=== PATIENT | male | born 1945 | race Caucasian/White ===

== ENCOUNTER 2017-11-01 15:16 | Outpatient (CLI) | payer MEDICARE, OTHER, MEDICAID ==
[2017-11-01 18:55] LABS: BASOPHILS % (AUTO) 0.4 %; EOSINOPHILS # (AUTO) 0.3 10^3/uL (0.0-0.7); EOSINOPHILS % (AUTO) 3.2 %; HGB - HEMOGLOBIN 11.6 g/dL (14.0-18.0); LYMPHOCYTES # (AUTO) 1.4 10^3/uL (1.5-3.5); MEAN CORPUSCULAR HGB CONC 31.2 g/dL (32.0-36.0); MEAN CORPUSCULAR VOLUME 92.9 fL (80.0-94.0); MONOCYTES # (AUTO) 0.7 10^3/uL (0.0-1.0); NEUTROPHILS # (AUTO) 6.1 10^3/uL (1.5-6.6); NEUTROPHILS % (AUTO) 72.4 %; PLT - PLATELET COUNT 242 10^3/uL (130-450); RED BLOOD COUNT 3.99 10^6/uL (4.70-6.10); RED CELL DISTRIBUTION WIDTH 14.5 % (12.0-15.0); WHITE BLOOD COUNT 8.5 x10^3/uL (4.8-10.8)
[2017-11-01 19:17] LABS: PSA FREE 0.04 ng/mL (0.16-2.81)
[2017-11-01 19:20] LABS: PSA TOTAL 0.28 ng/mL (0.000-2.000)
[2017-11-01 19:24] LABS: HB2 TOTAL 12.3 g/dL; HEMOGLOBIN A1C 0.54 g/dL; HEMOGLOBIN A1C % 6.2 % (4.6-6.2)
[2017-11-01 19:48] LABS: ALBUMIN/GLOBULIN RATIO 0.7 (1.0-2.2); ALKALINE PHOSPHATASE 74 IU/L (42-121); ALT ALANINE AMINOTRANSFERASE 22 IU/L (10-60); AST ASPARTATE AMINOTRANSFERASE 23 IU/L (10-42); BILIRUBIN,TOTAL 0.7 mg/dL (0.2-1.0); BUN - BLOOD UREA NITROGEN 11 mg/dL (6-20); CALCIUM 9.9 mg/dL (8.5-10.3); CARBON DIOXIDE - CO2 35 mmol/L (21-32); CHLORIDE 99 mmol/L (101-111); CHOL/HDL RATIO 4.7 (<5.0); CHOLESTEROL 177 mg/dL; GFR - MDRD 74 (>89); GLUCOSE 93 mg/dL (70-100); HDL CHOLESTEROL 38 mg/dL; LDL CHOLESTEROL,CALCULATED 106 mg/dL; LDL/HDL RATIO 2.8 (<3.6); SODIUM 138 mmol/L (135-145); TOTAL PROTEIN 7.3 g/dL (6.7-8.2); VLDL CHOLESTEROL 33 mg/dL
== END 2017-11-01 15:17 | disposition home or self-care (01) ==
LOC: LAB.N 15:16
PROVIDERS: ATTEND Nurse Practitioner Gerontology
DX: D64.9 Anemia, unspecified (principal); E11.9 Type 2 diabetes mellitus without complications; E78.1 Pure hyperglyceridemia; K21.9 Gastro-esophageal reflux disease without esophagitis; N28.9 Disorder of kidney and ureter, unspecified; I10 Essential (primary) hypertension; E78.5 Hyperlipidemia, unspecified; N40.0 Benign prostatic hyperplasia without lower urinary tract symptoms
CPT/HCPCS: 36415; 80053; 80061; 83036; 83721; 84154; 84443; 85025

== ENCOUNTER 2018-01-26 06:40 | Outpatient (CLI) | payer MEDICARE, OTHER, MEDICAID | END 2018-01-26 06:41 | disposition EMS.NT | LOC: EMS 06:40 | PROVIDERS: ATTEND Surgery | DX: Z03.89 Encounter for observation for other suspected diseases and conditions ruled out (principal); W01.0XXA Fall on same level from slipping, tripping and stumbling without subsequent striking against object, initial encounter; Y92.039 Unspecified place in apartment as the place of occurrence of the external cause ==

== ENCOUNTER 2018-04-09 14:02 | Outpatient (CLI) | payer MEDICARE, OTHER, MEDICAID | END 2018-04-09 14:03 | disposition EMS.NT | LOC: EMS 14:02 | PROVIDERS: ATTEND Surgery | DX: L76.22 Postprocedural hemorrhage of skin and subcutaneous tissue following other procedure (principal) ==

== ENCOUNTER 2018-04-14 15:28 | Outpatient (CLI) | payer MEDICARE, OTHER, MEDICAID ==
[2018-04-14 19:40] LABS: HB2 TOTAL 11.8 g/dL; HEMOGLOBIN A1C 0.52 g/dL; HEMOGLOBIN A1C % 6.2 % (4.6-6.2)
[2018-04-14 19:48] LABS: PSA FREE 0.03 ng/mL (0.16-2.81)
[2018-04-14 19:49] LABS: PSA TOTAL 0.19 ng/mL (0.000-2.000)
== END 2018-04-14 23:59 | disposition home or self-care (01) ==
LOC: LAB.N 15:28
PROVIDERS: ATTEND Nurse Practitioner Gerontology
DX: E11.9 Type 2 diabetes mellitus without complications (principal); N40.0 Benign prostatic hyperplasia without lower urinary tract symptoms; E03.9 Hypothyroidism, unspecified
CPT/HCPCS: 36415; 83036; 84153; 84154; 84443

== ENCOUNTER 2018-05-18 18:13 | Outpatient (CLI) | payer MEDICARE, OTHER, MEDICAID | END 2018-05-18 18:14 | disposition critical access hospital (66) | LOC: EMS 18:13 | PROVIDERS: ATTEND Surgery | DX: R53.1 Weakness (principal); M54.5 Low back pain | CPT/HCPCS: A0425; A0429 ==

== ENCOUNTER 2018-05-18 18:40 | Emergency (ER) | payer MEDICARE, OTHER, MEDICAID ==
[2018-05-18 19:10] LABS: BASOPHILS % (AUTO) 0.6 %; EOSINOPHILS # (AUTO) 0.2 10^3/uL (0.0-0.7); EOSINOPHILS % (AUTO) 3.2 %; HGB - HEMOGLOBIN 11.7 g/dL (14.0-18.0); LYMPHOCYTES # (AUTO) 1.1 10^3/uL (1.5-3.5); LYMPHOCYTES % (AUTO) 15.3 %; MEAN CORPUSCULAR HEMOGLOBIN 27.3 pg (27.0-31.0); MEAN CORPUSCULAR HGB CONC 30.7 g/dL (32.0-36.0); MEAN CORPUSCULAR VOLUME 88.9 fL (80.0-94.0); MEAN PLATELET VOLUME 7.6 fL (7.4-11.4); MONOCYTES # (AUTO) 0.5 10^3/uL (0.0-1.0); MONOCYTES % (AUTO) 6.7 %; NEUTROPHILS # (AUTO) 5.3 10^3/uL (1.5-6.6); NEUTROPHILS % (AUTO) 74.2 %; PLT - PLATELET COUNT 218 10^3/uL (130-450); RED BLOOD COUNT 4.27 10^6/uL (4.70-6.10); RED CELL DISTRIBUTION WIDTH 16.1 % (12.0-15.0); WHITE BLOOD COUNT 7.2 x10^3/uL (4.8-10.8)
[2018-05-18 19:22] LABS: ALBUMIN 3.2 g/dL (3.2-5.5); ALBUMIN/GLOBULIN RATIO 0.8 (1.0-2.2); BILIRUBIN,TOTAL 0.8 mg/dL (0.2-1.0); CALCIUM 9.5 mg/dL (8.5-10.3); CREATININE 0.8 mg/dL (0.6-1.2); TOTAL PROTEIN 7.2 g/dL (6.7-8.2)
--- NOTE | 2018-05-18 20:36 | ED Physician Documentation ---
History of Present Illness - Stated complaint Stated Complaint: WEAKNESS, BACK PAIN - Chief complaint Chief Complaint: Neuro - History obtained from History obtained from: Patient - History of Present Illness Timing: Today Pain level max: 8 Pain level now: 8 Improved by: rest Worsened by: movement - Additonal information Additional information: 72 yo M with low back pain today. Feels sharp. Intermittent. States R knee locked up today. Called 911 and brought here. No trauma. No fall. Has had back issues in the past. States is constipated and this worsens the back pain. Review of Systems Constitutional: denies: Fever, Chills Throat: denies: Sore throat Cardiac: denies: Chest pain / pressure, Palpitations Respiratory: denies: Cough, Hemoptysis, Wheezing GI: denies: Abdominal Pain, Nausea, Vomiting : denies: Dysuria Skin: denies: Rash Musculoskeletal: reports: Joint pain (chronic knee and back pain.). denies: Neck pain, Extremity swelling Neurologic: denies: Confused, Altered mental status, Head injury, LOC PD PAST MEDICAL HISTORY - Past Medical History Respiratory: Shortness of breath Endocrine/Autoimmune: Type 2 diabetes Musculoskeletal: Osteoarthritis - Past Surgical History Derm: Skin grafts - Present Medications Home Medications: Ambulatory Orders Medication Instructions Recorded Confirmed Cefdinir 300 mg PO BID #20 capsule 05/18/18 - Allergies Allergies/Adverse Reactions: Allergies Allergy/AdvReac Type Severity Reaction Status Date / Time Sulfa (Sulfonamide Allergy Unknown Verified 05/18/18 18:48 Antibiotics) - Social History Does the pt smoke?: No Smoking Status: Never smoker Does the pt drink ETOH?: No Does the pt have substance abuse?: No - Immunizations Immunizations are current?: Yes PD ED PE NORMAL - Vitals Vital signs reviewed: Yes - General General: Alert and oriented X 3, No acute distress - HEENT HEENT: Moist mucous membranes - Neck Neck: Supple, no meningeal sign, No bony TTP - Cardiac Cardiac: RRR, Strong equal pulses - Respiratory Respiratory: No respiratory distress, Clear bilaterally - Abdomen Abdomen: Soft, Non tender, Other (large umbilical hernia, no incarceration.) - Back Back: No spinal TTP - Derm Derm: Warm and dry - Extremities Extremities: Normal ROM s pain - Neuro Neuro: Alert and oriented X 3, No motor deficit, No sensory deficit - Psych Psych: Normal mood, Normal affect Results - Vitals Vitals: Vital Signs - 24 hr 05/18/18 05/18/18 05/18/18 18:43 19:28 21:24 Temperature 36.1 C L Heart Rate 81 78 79 Respiratory 20 18 Rate Blood Pressure 140/69 H 137/89 H O2 Saturation 95 97 05/18/18 22:36 Temperature 36.3 C L Heart Rate 76 Respiratory 16 Rate Blood Pressure 104/84 H O2 Saturation 96 Oxygen O2 Source Nasal cannula - Labs Labs: Laboratory Tests 05/18/18 05/18/18 05/18/18 19:02 19:02 20:55 WBC 7.2 RBC 4.27 L Hgb 11.7 L Hct 38.0 L MCV 88.9 MCH 27.3 MCHC 30.7 L RDW 16.1 H Plt Count 218 MPV 7.6 Neut # (Auto) 5.3 Lymph # (Auto) 1.1 L [place] # (Auto) 0.5 Eos # (Auto) 0.2 Baso # (Auto) 0.0 Absolute Nucleated RBC 0.00 Nucleated RBC % 0.0 Sodium 136 Potassium 4.1 Chloride 98 L Carbon Dioxide 32 Anion Gap 6.0 BUN 10 Creatinine 0.8 Estimated GFR (MDRD) 96 Glucose 98 Calcium 9.5 Total Bilirubin 0.8 AST 18 ALT 13 Alkaline Phosphatase 74 Total Protein 7.2 Albumin 3.2 Globulin 4.0 Albumin/Globulin Ratio 0.8 L Lipase 51 Urine Color YELLOW Urine Clarity CLOUDY Urine pH 7.5 Ur Specific [place] 1.020 Urine Protein NEGATIVE Urine Glucose (UA) NEGATIVE Urine Ketones TRACE Urine Occult Blood NEGATIVE Urine Nitrite NEGATIVE Urine Bilirubin NEGATIVE Urine Urobilinogen 2 H Ur Leukocyte Esterase MODERATE H Urine RBC 0-5 Urine WBC >25 H Ur Squamous Epith Cells RARE Squamous Urine Bacteria Many H Ur Microscopic Review INDICATED Urine Culture Comments INDICATED PD MEDICAL DECISION MAKING - ED course Complexity details: reviewed results, re-evaluated patient, considered differential, d/w patient ED course: Patient is a 72-year-old male who presents the emergency department with low back pain, found to have a UTI. Pain resolved. Given Rocephin. Will place on antibiotics for home. He is well-appearing, nontoxic. Afebrile. Patient counseled regarding signs and symptoms for which I believe and urgent re- evaluation would be necessary. Patient with good understanding of and agreement to plan and is comfortable going home at this time This document was made in part using voice recognition software. While efforts are made to proofread this document, sound alike and grammatical errors may occur. Departure - Departure Disposition: 01 Home, Self Care Clinical Impression: UTI (urinary tract infection) Qualifiers: Urinary tract infection type: acute cystitis Hematuria presence: without hematuria Qualified Code(s): N30.00 - Acute cystitis without hematuria Condition: Good Instructions: ED UTI Cystitis Male Follow-Up: Lavonne Cornelius ARNP [Primary Care Provider] - Prescriptions: Cefdinir 300 mg PO BID #20 capsule Comments: Take all antibiotics until gone. Return if you worsen. Discharge Date/Time: 05/18/18 23:40
[2018-05-18 20:59] LABS: BILIRUBIN,URINE NEGATIVE (NEGATIVE); GLUCOSE, URINE (UA) NEGATIVE (NEGATIVE); KETONES,URINE (UA) TRACE mg/dL (NEGATIVE); LEUKOCYTE ESTERASE, URINE MODERATE (NEGATIVE); NITRITE,URINE NEGATIVE (NEGATIVE); OCCULT BLOOD,URINE NEGATIVE (NEGATIVE); PH,URINE 7.5 PH (5.0-7.5); PROTEIN,URINE NEGATIVE (NEGATIVE); UROBILINOGEN,URINE 2 E.U./dL (NORMAL)
[2018-05-18 21:03] LABS: CLARITY,URINE CLOUDY (CLEAR)
[2018-05-18 21:07] LABS: BACTERIA,URINE Many /HPF (None Seen); RBC,URINE 0-5 /HPF (0-5); SQUAMOUS EPITHELIAL CELL,UR RARE Squamous (<= Few)
[2018-05-18] MEDS ORDERED: cefTRIAXone 1 GM VIAL IVP STA (21:12)
[2018-05-18 22:37] VITALS: BP 104/84
== END 2018-05-18 23:40 | disposition home or self-care (01) ==
LOC: EDUNIT# → ED 18:40
DX: N30.00 Acute cystitis without hematuria (principal); E11.9 Type 2 diabetes mellitus without complications
CPT/HCPCS: 36415; 80053; 81001; 81003; 83690; 85025; 87086; 87181; 96374; 99283; 99284

== ENCOUNTER 2018-06-22 11:10 | Outpatient (CLI) | payer MEDICARE, OTHER, MEDICAID | END 2018-06-22 11:11 | disposition EMS.NT | LOC: EMS 11:10 | PROVIDERS: ATTEND Surgery | DX: Z03.89 Encounter for observation for other suspected diseases and conditions ruled out (principal) ==

== ENCOUNTER 2018-07-12 08:00 | Outpatient (CLI) | payer MEDICARE, OTHER, MEDICAID | END 2018-07-12 23:59 | disposition home or self-care (01) | LOC: LAB.R 08:00 | PROVIDERS: ATTEND Nurse Practitioner Gerontology | DX: L08.9 Local infection of the skin and subcutaneous tissue, unspecified (principal) | CPT/HCPCS: 87070; 87181; 87205 ==

== ENCOUNTER 2018-09-14 08:00 | Outpatient (CLI) | payer MEDICARE, OTHER, MEDICAID | END 2018-09-14 23:59 | disposition home or self-care (01) | LOC: LAB.R 08:00 | PROVIDERS: ATTEND Family Medicine | DX: N39.0 Urinary tract infection, site not specified (principal) | CPT/HCPCS: 87086; 87181 ==

== ENCOUNTER 2019-01-17 13:29 | Outpatient (CLI) | payer MEDICARE, OTHER, MEDICAID ==
[2019-01-17 19:02] LABS: BASOPHILS % (AUTO) 0.3 %; EOSINOPHILS # (AUTO) 0.2 10^3/uL (0.0-0.7); EOSINOPHILS % (AUTO) 3.2 %; HGB - HEMOGLOBIN 10.7 g/dL (14.0-18.0); LYMPHOCYTES % (AUTO) 16.1 %; MEAN CORPUSCULAR HEMOGLOBIN 29.2 pg (27.0-31.0); MEAN CORPUSCULAR HGB CONC 29.7 g/dL (32.0-36.0); MEAN CORPUSCULAR VOLUME 98.4 fL (80.0-94.0); MEAN PLATELET VOLUME 9.9 fL (7.4-11.4); MONOCYTES # (AUTO) 0.5 10^3/uL (0.0-1.0); MONOCYTES % (AUTO) 8.1 %; NEUTROPHILS # (AUTO) 4.2 10^3/uL (1.5-6.6); NEUTROPHILS % (AUTO) 71.8 %; PLT - PLATELET COUNT 219 10^3/uL (130-450); RED BLOOD COUNT 3.66 10^6/uL (4.70-6.10); WHITE BLOOD COUNT 5.9 x10^3/uL (4.8-10.8)
[2019-01-17 19:33] LABS: HB2 TOTAL 10.8 g/dL; HEMOGLOBIN A1C 0.45 g/dL
[2019-01-17 19:57] LABS: ALBUMIN 3.1 g/dL (3.2-5.5); ALBUMIN/GLOBULIN RATIO 0.8 (1.0-2.2); BILIRUBIN,TOTAL 0.4 mg/dL (0.2-1.0); CALCIUM 9.6 mg/dL (8.5-10.3); CREATININE 0.9 mg/dL (0.6-1.2); TOTAL PROTEIN 6.8 g/dL (6.7-8.2)
== END 2019-01-17 23:59 | disposition home or self-care (01) ==
LOC: LAB.N 13:29
PROVIDERS: ATTEND Nurse Practitioner Gerontology
DX: I10 Essential (primary) hypertension (principal); E11.9 Type 2 diabetes mellitus without complications
CPT/HCPCS: 36415; 80053; 83036; 85025

== ENCOUNTER 2019-04-27 08:00 | Outpatient (CLI) | payer MEDICARE, OTHER, MEDICAID ==
[2019-04-27 12:38] LABS: BASOPHILS % (AUTO) 0.3 %; EOSINOPHILS # (AUTO) 0.2 10^3/uL (0.0-0.7); HGB - HEMOGLOBIN 11.2 g/dL (14.0-18.0); LYMPHOCYTES # (AUTO) 0.9 10^3/uL (1.5-3.5); LYMPHOCYTES % (AUTO) 16.1 %; MEAN CORPUSCULAR HEMOGLOBIN 30.7 pg (27.0-31.0); MEAN CORPUSCULAR VOLUME 98.9 fL (80.0-94.0); MEAN PLATELET VOLUME 9.8 fL (7.4-11.4); MONOCYTES # (AUTO) 0.5 10^3/uL (0.0-1.0); MONOCYTES % (AUTO) 9.2 %; NEUTROPHILS % (AUTO) 70.1 %; PLT - PLATELET COUNT 242 10^3/uL (130-450); RED BLOOD COUNT 3.65 10^6/uL (4.70-6.10); RED CELL DISTRIBUTION WIDTH 13.5 % (12.0-15.0); WHITE BLOOD COUNT 5.8 x10^3/uL (4.8-10.8)
== END 2019-04-27 23:59 | disposition home or self-care (01) ==
LOC: LAB.N 08:00
PROVIDERS: ATTEND Nurse Practitioner Gerontology
DX: D64.9 Anemia, unspecified (principal)
CPT/HCPCS: 36415; 85025

== ENCOUNTER 2019-06-02 08:00 | Outpatient (CLI) | payer MEDICARE, OTHER, MEDICAID ==
[2019-06-02 19:01] LABS: BASOPHILS % (AUTO) 0.4 %; EOSINOPHILS # (AUTO) 0.2 10^3/uL (0.0-0.7); EOSINOPHILS % (AUTO) 3.4 %; HGB - HEMOGLOBIN 10.6 g/dL (14.0-18.0); LYMPHOCYTES % (AUTO) 15.2 %; MEAN CORPUSCULAR HGB CONC 30.1 g/dL (32.0-36.0); MEAN CORPUSCULAR VOLUME 96.2 fL (80.0-94.0); MEAN PLATELET VOLUME 9.7 fL (7.4-11.4); MONOCYTES # (AUTO) 0.5 10^3/uL (0.0-1.0); MONOCYTES % (AUTO) 7.6 %; NEUTROPHILS % (AUTO) 73.1 %; PLT - PLATELET COUNT 244 10^3/uL (130-450); RED BLOOD COUNT 3.66 10^6/uL (4.70-6.10); RED CELL DISTRIBUTION WIDTH 13.5 % (12.0-15.0); WHITE BLOOD COUNT 6.8 x10^3/uL (4.8-10.8)
[2019-06-02 19:30] LABS: ALBUMIN 3.2 g/dL (3.2-5.5); ALBUMIN/GLOBULIN RATIO 0.9 (1.0-2.2); BILIRUBIN,TOTAL 0.5 mg/dL (0.2-1.0); CALCIUM 9.9 mg/dL (8.5-10.3); CREATININE 0.9 mg/dL (0.6-1.2); TOTAL PROTEIN 6.7 g/dL (6.7-8.2)
[2019-06-02 19:53] LABS: HB2 TOTAL 10.9 g/dL; HEMOGLOBIN A1C 0.48 g/dL; HEMOGLOBIN A1C % 6.2 % (4.6-6.2)
== END 2019-06-02 23:59 | disposition home or self-care (01) ==
LOC: LAB.R 08:00
PROVIDERS: ATTEND Nurse Practitioner Gerontology
DX: I10 Essential (primary) hypertension (principal); E11.9 Type 2 diabetes mellitus without complications; E03.9 Hypothyroidism, unspecified
CPT/HCPCS: 36415; 80053; 83036; 84443; 85025

== ENCOUNTER 2019-07-25 00:28 | Outpatient (CLI) | payer MEDICARE, OTHER, MEDICAID | END 2019-07-25 00:29 | disposition EMS.NT | LOC: EMS 00:28 | PROVIDERS: ATTEND Surgery | DX: Z03.89 Encounter for observation for other suspected diseases and conditions ruled out (principal) ==

== ENCOUNTER 2019-07-25 05:15 | Outpatient (CLI) | payer MEDICARE, OTHER, MEDICAID | END 2019-07-25 05:16 | disposition critical access hospital (66) | LOC: EMS 05:15 | PROVIDERS: ATTEND Surgery | DX: M79.661 Pain in right lower leg (principal); W07.XXXA Fall from chair, initial encounter; Y92.039 Unspecified place in apartment as the place of occurrence of the external cause ==

== ENCOUNTER 2019-07-25 05:35 | Emergency (ER) | payer MEDICARE, OTHER, MEDICAID ==
[2019-07-25 06:45] LABS: BILIRUBIN,URINE NEGATIVE (NEGATIVE); GLUCOSE, URINE (UA) NEGATIVE (NEGATIVE); KETONES,URINE (UA) NEGATIVE (NEGATIVE); LEUKOCYTE ESTERASE, URINE SMALL (NEGATIVE); NITRITE,URINE POSITIVE (NEGATIVE); OCCULT BLOOD,URINE NEGATIVE (NEGATIVE); PROTEIN,URINE NEGATIVE (NEGATIVE); UROBILINOGEN,URINE 0.2 (NORMAL) E.U./dL (NORMAL)
[2019-07-25 06:48] LABS: CLARITY,URINE SL. CLOUDY (CLEAR)
[2019-07-25 06:48] LABS: BASOPHILS % (AUTO) 0.3 %; EOSINOPHILS # (AUTO) 0.1 10^3/uL (0.0-0.7); EOSINOPHILS % (AUTO) 1.1 %; HGB - HEMOGLOBIN 10.5 g/dL (14.0-18.0); LYMPHOCYTES # (AUTO) 0.7 10^3/uL (1.5-3.5); MEAN CORPUSCULAR HEMOGLOBIN 29.8 pg (27.0-31.0); MEAN CORPUSCULAR HGB CONC 30.8 g/dL (32.0-36.0); MEAN CORPUSCULAR VOLUME 96.9 fL (80.0-94.0); MEAN PLATELET VOLUME 9.3 fL (7.4-11.4); MONOCYTES # (AUTO) 0.6 10^3/uL (0.0-1.0); MONOCYTES % (AUTO) 6.2 %; PLT - PLATELET COUNT 228 10^3/uL (130-450); RED BLOOD COUNT 3.52 10^6/uL (4.70-6.10); RED CELL DISTRIBUTION WIDTH 13.6 % (12.0-15.0); WHITE BLOOD COUNT 9.4 x10^3/uL (4.8-10.8)
[2019-07-25 06:51] LABS: BACTERIA,URINE Many /HPF (None Seen); RBC,URINE 0-5 /HPF (0-5); SQUAMOUS EPITHELIAL CELL,UR NONE SEEN (<= Few)
[2019-07-25 07:06] LABS: ALBUMIN 3.2 g/dL (3.2-5.5); ALBUMIN/GLOBULIN RATIO 0.9 (1.0-2.2); BILIRUBIN,TOTAL 0.3 mg/dL (0.2-1.0); CALCIUM 9.7 mg/dL (8.5-10.3); TOTAL PROTEIN 6.8 g/dL (6.7-8.2)
--- NOTE | 2019-07-25 07:18 | XRAY Report ---
Reason: fall getting up from chair Procedure Date: 07/25/2019 Accession Number: [id number] / [id number] Procedure: XR - Tib/Fib RT CPT Code: Final Report FULL RESULT: EXAM: RIGHT TIBIA/FIBULA RADIOGRAPHY EXAM DATE: 07/25/2019 06:34 AM. CLINICAL HISTORY: Fall getting up from chair. COMPARISON: ANKLE 3 VIEW RT 07/25/2019 6:36 AM. TECHNIQUE: 2 views. FINDINGS: Bones: Normal. No fracture or bone lesion. Joints: No subluxation or dislocation at the visualized knee and ankle joints. There are advanced degenerative changes of the knee joint. Soft Tissues: There is diffuse soft tissue swelling. There is lobular calcification in the soft tissue posterior to the distal tibia, in the expected location of the Achilles tendon. IMPRESSION: 1. No fracture or other acute osseous abnormality of the right tibia/fibula. 2. Advanced degenerative changes of the knee joint. 3. Lobular calcification in the soft tissue along the expected course of the Achilles tendon. RADIA
--- NOTE | 2019-07-25 07:22 | XRAY Report ---
Reason: dyspnea, edema Procedure Date: 07/25/2019 Accession Number: [id number] / [id number] Procedure: XR - Chest 1 View X-Ray CPT Code: 08462 Final Report FULL RESULT: EXAM: CHEST RADIOGRAPHY EXAM DATE: 07/25/2019 07:08 AM. CLINICAL HISTORY: Dyspnea, edema. COMPARISON: CHEST 2 VIEW PA/LAT 10/03/2015 10:30 AM. TECHNIQUE: 1 view. FINDINGS: Lungs/Pleura: There is mild pulmonary vascular congestion and diffuse bilateral interstitial prominence. The left costophrenic sulcus is indistinct, which may be due to small left pleural effusion or cardiac enlargement. No pneumothorax. Mediastinum: There is stable moderate enlargement of the cardiac silhouette. There is moderate atherosclerotic calcification of the aortic arch. Other: No acute osseous abnormality. There are advanced degenerative changes of the bilateral glenohumeral joints. IMPRESSION: 1. Mild CHF/fluid overload pattern including mild pulmonary vascular congestion, interstitial edema, and stable moderate cardiomegaly. 2. Possible small left pleural effusion. RADIA
[2019-07-25] MEDS ORDERED: FUROSEMIDE 20 MG TABLET PO STA (07:25)
[2019-07-25] MEDS ORDERED: cephALEXin 250 MG CAPSULE PO STA (07:25)
--- NOTE | 2019-07-25 07:25 | XRAY Report ---
Reason: fall getting up from chair Procedure Date: 07/25/2019 Accession Number: [id number] / [id number] Procedure: XR - Ankle 3 View RT CPT Code: Final Report FULL RESULT: EXAM: RIGHT ANKLE RADIOGRAPHY EXAM DATE: 07/25/2019 07:08 AM. CLINICAL HISTORY: Fall getting up from chair. COMPARISON: Right tibia/fibula 2 VIEW 07/25/2019 6:34 AM. TECHNIQUE: 3 nonweightbearing views. FINDINGS: Bones: Normal. No fractures or bone lesions. Joints: Normal. No effusion. No subluxations. The ankle mortise is normally aligned. Soft Tissues: There is diffuse soft tissue swelling. There is lobular calcification posterior to the distal tibia and calcaneus, along the expected location of the Achilles tendon. A small calcaneal plantar spur is present. There is coarse calcification in the proximal plantar fascia. IMPRESSION: 1. No fracture or other acute osseous abnormality of the right ankle. 2. Lobular calcification along the course of the Achilles tendon, suggestive of Achilles tendinopathy. 3. Small calcaneal plantar spur and calcification of the proximal plantar fascia. RADIA
--- NOTE | 2019-07-25 07:34 | ED Physician Documentation ---
PD HPI LOWER EXT INJURY - Stated complaint Stated Complaint: R KNEE/ ANKLE PX - Chief complaint Chief Complaint: Trauma Ext - History obtained from History obtained from: Patient, EMS - History of Present Illness PD HPI LOW EXT INJURY LOCATION: Right, Lower leg, Ankle Type of injury: Fall, Twist (The patient states he had a newer reclining chair that goes from seated to standing position. He states as he was getting up out of it it pushed him forward and his foot got caught on the foot rest portion and he fell as he twisted his right ankle. He has an abrasion on the lower leg and some pain in the lower leg and ankle. He also states he has been having some edema in both legs for several weeks or more. He also had noticed some discomfort with urination and some darker color of his urine for the last week. He had an appointment with his primary care later today regarding the urine and edema. However with the fall injury this morning, after the medics arrived and helped him back up, the talked him into coming here for evaluation rather than going to his provider later today.) Where injury occurred: Home Timing - onset: How many hours ago (1), Today Timing - duration: Hours (1) Timing - details: Abrupt onset Improved by: Rest Worsened by: Moving, Palpating Associated symptoms: Swelling (both lower legs for few weeks. Having some swelling righ lateral ankle since injury.). No: Weakness, Numbness Similar symptoms before: Has not had sx before Recently seen: Not recently seen Review of Systems Constitutional: denies: Fever, Chills Nose: denies: Rhinorrhea / runny nose, Congestion Throat: denies: Sore throat Respiratory: reports: Dyspnea (chronic, on home oxygen 2 lpm [place].). denies: Cough GI: denies: Abdominal Pain, Nausea, Vomiting, Diarrhea : reports: Frequency (for a week, has had some frequency, small urine amounts, and noted his urine to have "darker" color.) Skin: reports: Abrasion (s) (right lower leg.) Neurologic: denies: Altered mental status, Headache, Head injury PD PAST MEDICAL HISTORY - Past Medical History Cardiovascular: Hypertension, High cholesterol Respiratory: COPD, Shortness of breath Endocrine/Autoimmune: Type 2 diabetes, HyPOthyroidism Musculoskeletal: Osteoarthritis - Past Surgical History General: Other HEENT: Cataracts, Detached retina repair Derm: Skin grafts - Present Medications Home Medications: Ambulatory Orders Medication Instructions Recorded Confirmed Enoxaparin [Lovenox] 06/06/18 Levothyroxine [Synthroid] 100 mcg DAILY 06/06/18 Lidocaine Patch 5% [Lidoderm Patch] 06/06/18 Metoprolol Succinate 50 tab DAILY 06/06/18 Omeprazole 20 mg DAILY 06/06/18 Pravastatin Sodium 20 mg DAILY 06/06/18 06/06/18 lisinopriL [Lisinopril] 40 mg DAILY 06/06/18 metFORMIN [Glucophage] 500 mg DAILY 06/06/18 Aspirin Chewable [[place] 1 tab DAILY 07/25/19 07/25/19 Aspirin] Celecoxib [Celebrex] 200 mg BID PRN 07/25/19 07/25/19 Cephalexin [Keflex] 500 mg PO TID #20 capsule 07/25/19 hydroCHLOROthiazide 25 mg PO DAILY #10 tablet 07/25/19 [Hydrochlorothiazide] - Allergies Allergies/Adverse Reactions: Allergies Allergy/AdvReac Type Severity Reaction Status Date / Time Sulfa (Sulfonamide Allergy Unknown Verified 06/06/18 13:42 Antibiotics) - Social History Does the pt smoke?: No Smoking Status: Former smoker Does the pt drink ETOH?: No Does the pt have substance abuse?: No - Immunizations Immunizations are current?: Yes PD ED PE NORMAL - Vitals Vital signs reviewed: Yes - General General: Alert and oriented X 3, No acute distress, Well developed/nourished - HEENT HEENT: Atraumatic, Pharynx benign - Neck Neck: Supple, no meningeal sign, No adenopathy - Cardiac Cardiac: RRR, No murmur - Respiratory Respiratory: No respiratory distress. No: Clear bilaterally (some mild crackles in bases. No wheezing. ) - Abdomen Abdomen: Soft, Non tender, Other (Very rounded hernia in the periumbilical area which is soft and nontender. It is the size of a large grapefruit.) - Back Back: No CVA TTP, No spinal TTP - Derm Derm: Normal color, Warm and dry - Extremities Extremities: No calf tenderness / cord, Other (2+ edema in both lower legs and ankles. The right ankle and lateral lower leg show superficial abrasion and also some swelling and tenderness. There is no medial tenderness. No gross deformities noted on exam.) - Neuro Neuro: Alert and oriented X 3, No motor deficit, Normal speech Eye Opening: Spontaneous Motor: Obeys Commands Verbal: Oriented GCS Score: 15 Results - Vitals Vitals: Vital Signs - 24 hr 07/25/19 07/25/19 05:45 07:00 Temperature 36.1 C L Heart Rate 91 84 Respiratory 20 20 Rate Blood Pressure 125/68 127/58 L O2 Saturation 96 96 Oxygen O2 Source Room air - Labs Labs: Laboratory Tests 07/25/19 07/25/19 07/25/19 06:34 06:40 06:40 WBC 9.4 RBC 3.52 L Hgb 10.5 L Hct 34.1 L MCV 96.9 H MCH 29.8 MCHC 30.8 L RDW 13.6 Plt Count 228 MPV 9.3 Neut # (Auto) 8.0 H Lymph # (Auto) 0.7 L [place] # (Auto) 0.6 Eos # (Auto) 0.1 Baso # (Auto) 0.0 Absolute Nucleated RBC 0.00 Nucleated RBC % 0.0 Sodium 138 Potassium 4.2 Chloride 101 Carbon Dioxide 29 Anion Gap 8.0 BUN 19 Creatinine 1.0 Estimated GFR (MDRD) 74 L Glucose 133 H Calcium 9.7 Magnesium 2.0 Total Bilirubin 0.3 AST 15 ALT 13 Alkaline Phosphatase 75 B-Natriuretic Peptide Total Protein 6.8 Albumin 3.2 Globulin 3.6 Albumin/Globulin Ratio 0.9 L Lipase 30 Urine Color YELLOW Urine Clarity [place]. CLOUDY Urine pH 6.0 Ur Specific [place] 1.020 Urine Protein NEGATIVE Urine Glucose (UA) NEGATIVE Urine Ketones NEGATIVE Urine Occult Blood NEGATIVE Urine Nitrite POSITIVE H Urine Bilirubin NEGATIVE Urine Urobilinogen 0.2 (NORMAL) Ur Leukocyte Esterase SMALL H Urine RBC 0-5 Urine WBC 11-25 H Ur Squamous Epith Cells NONE SEEN Urine Bacteria Many H Ur Microscopic Review INDICATED Urine Culture Comments INDICATED 07/25/19 06:40 WBC RBC Hgb Hct MCV MCH MCHC RDW Plt Count MPV Neut # (Auto) Lymph # (Auto) [place] # (Auto) Eos # (Auto) Baso # (Auto) Absolute Nucleated RBC Nucleated RBC % Sodium Potassium Chloride Carbon Dioxide Anion Gap BUN Creatinine Estimated GFR (MDRD) Glucose Calcium Magnesium Total Bilirubin AST ALT Alkaline Phosphatase B-Natriuretic Peptide 26 Total Protein Albumin Globulin Albumin/Globulin Ratio Lipase Urine Color Urine Clarity Urine pH Ur Specific [place] Urine Protein Urine Glucose (UA) Urine Ketones Urine Occult Blood Urine Nitrite Urine Bilirubin Urine Urobilinogen Ur Leukocyte Esterase Urine RBC Urine WBC Ur Squamous Epith Cells Urine Bacteria Ur Microscopic Review Urine Culture Comments - Rads (name of study) chest xray Radiology: Prelim report reviewed (Small left effusion. Enlarged heart similar to prior x-ray. Some vascular congestion is noted.), See rad report right ankle/tib-fib Radiology: Prelim report reviewed (No acute fractures, old calcific changes noted.), See rad report PD MEDICAL DECISION MAKING - ED course Complexity details: considered differential (The patient came to the ER because of right lower leg and ankle injury getting up from his stand-up chair. However he had been noticing some discomfort urinating and darker urine and has also had some edema in both legs. He has an appointment with his primary care later today actually regarding these symptoms. We can further evaluate them here.), d/w patient Departure - Departure Disposition: 01 Home, Self Care Clinical Impression: Leg edema Ankle sprain Qualifiers: Encounter type: initial encounter Involved ligament of ankle: unspecified ligament Laterality: right Qualified Code(s): S93.401A - Sprain of unspecified ligament of right ankle, initial encounter UTI (urinary tract infection) Qualifiers: Urinary tract infection type: acute cystitis Hematuria presence: without hematuria Qualified Code(s): N30.00 - Acute cystitis without hematuria Dyspnea Qualifiers: Dyspnea type: shortness of breath Qualified Code(s): R06.02 - Shortness of breath Condition: Stable Record reviewed to determine appropriate education?: Yes Instructions: ED Sprain Ankle W X Ray, ED UTI Cystitis Male Follow-Up: [facility] [Provider Group] Prescriptions: Cephalexin [Keflex] 500 mg PO TID #20 capsule hydroCHLOROthiazide [Hydrochlorothiazide] 25 mg PO DAILY #10 tablet Comments: Continue usual medications. Add cephalexin 3 times a day for a week for your bladder infection. Also add HCTZ diuretic daily for 10 days to help with leg edema. Use an Mil wrap to help with the ankle sprain on the right side. Weightbearing and activity as tolerated. Tylenol 500 mg 4 times a day as needed for pain. Recheck if not improved well over the next several days to week.
[2019-07-25 14:18] VITALS: BP 124/62
== END 2019-07-25 14:17 | disposition home or self-care (01) ==
LOC: EDUNIT# → ED 05:35
DX: R60.0 Localized edema (principal); S93.401A Sprain of unspecified ligament of right ankle, initial encounter; W07.XXXA Fall from chair, initial encounter; Y92.009 Unspecified place in unspecified non-institutional (private) residence as the place of occurrence of the external cause; N30.00 Acute cystitis without hematuria; I50.9 Heart failure, unspecified; I11.0 Hypertensive heart disease with heart failure; E11.9 Type 2 diabetes mellitus without complications; Z79.84 Long term (current) use of oral hypoglycemic drugs; Z87.891 Personal history of nicotine dependence
CPT/HCPCS: 36415; 71045; 80053; 81001; 81003; 83690; 83735; 83880; 85025; 87086

== ENCOUNTER 2019-07-25 17:33 | Outpatient (CLI) | payer MEDICARE, OTHER, MEDICAID | END 2019-07-25 17:34 | disposition critical access hospital (66) | LOC: EMS 17:33 | PROVIDERS: ATTEND Surgery | DX: R53.1 Weakness (principal); M79.604 Pain in right leg | CPT/HCPCS: A0425; A0429 ==

== ENCOUNTER 2019-07-25 17:54 | Inpatient (IN) | payer MEDICARE, OTHER, MEDICAID ==
[2019-07-25 18:22] LABS: BASOPHILS % (AUTO) 0.2 %; EOSINOPHILS # (AUTO) 0.1 10^3/uL (0.0-0.7); EOSINOPHILS % (AUTO) 0.6 %; LYMPHOCYTES # (AUTO) 0.7 10^3/uL (1.5-3.5); MEAN CORPUSCULAR HGB CONC 31.3 g/dL (32.0-36.0); MEAN CORPUSCULAR VOLUME 95.9 fL (80.0-94.0); MEAN PLATELET VOLUME 8.8 fL (7.4-11.4); MONOCYTES # (AUTO) 0.5 10^3/uL (0.0-1.0); MONOCYTES % (AUTO) 6.2 %; NEUTROPHILS # (AUTO) 7.2 10^3/uL (1.5-6.6); NEUTROPHILS % (AUTO) 84.5 %; PLT - PLATELET COUNT 214 10^3/uL (130-450); RED BLOOD COUNT 3.67 10^6/uL (4.70-6.10); RED CELL DISTRIBUTION WIDTH 13.5 % (12.0-15.0); WHITE BLOOD COUNT 8.5 x10^3/uL (4.8-10.8)
[2019-07-25 18:36] LABS: ALBUMIN 3.1 g/dL (3.2-5.5); ALBUMIN/GLOBULIN RATIO 0.9 (1.0-2.2); BILIRUBIN,TOTAL 0.6 mg/dL (0.2-1.0); CALCIUM 9.5 mg/dL (8.5-10.3); MAGNESIUM 2.1 mg/dL (1.7-2.8); PHOSPHORUS 2.9 mg/dL (2.5-4.6); TOTAL PROTEIN 6.6 g/dL (6.7-8.2)
--- NOTE | 2019-07-25 19:30 | ED Physician Documentation ---
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 He was seen in the ED in the last day be because he was trying over a chair and he a apparently injured his right ankle. His x-rays were negative he was discharged home, but upon arriving home he reports that his roommates caregiver stated that he was unable to take care of himself, and that he should return to the hospital to be admitted. He states that he was not able to ambulate even with his walker. He does feel a bit more short of breath than at his baseline, he had x-ray earlier in the day which showed signs of heart failure and volume overload. He denies chest pain, denies belly pain, denies vomiting. He was diagnosed a UTI earlier in the day. No fever. Review of Systems Constitutional: denies: Fever Nose: denies: Rhinorrhea / runny nose Cardiac: denies: Chest pain / pressure Respiratory: denies: Cough GI: denies: Abdominal Pain : reports: Dysuria Skin: reports: Other (Redness beneath pannus) Neurologic: reports: Generalized weakness Endocrine: reports: Easy bruising / bleeding PD PAST MEDICAL HISTORY - Past Medical History Cardiovascular: Hypertension, High cholesterol Respiratory: COPD, Shortness of breath Endocrine/Autoimmune: Type 2 diabetes, HyPOthyroidism Musculoskeletal: Osteoarthritis - Past Surgical History Past Surgical History: Yes General: Other HEENT: Cataracts, Detached retina repair Derm: Skin grafts - Present Medications Home Medications: Ambulatory Orders Medication Instructions Recorded Confirmed Enoxaparin [Lovenox] 06/06/18 Levothyroxine [Synthroid] 100 mcg DAILY 06/06/18 Lidocaine Patch 5% [Lidoderm Patch] 06/06/18 Metoprolol Succinate 50 tab DAILY 06/06/18 Omeprazole 20 mg DAILY 06/06/18 Pravastatin Sodium 20 mg DAILY 06/06/18 06/06/18 lisinopriL [Lisinopril] 40 mg DAILY 06/06/18 metFORMIN [Glucophage] 500 mg DAILY 06/06/18 Aspirin Chewable [[place] 1 tab DAILY 07/25/19 07/25/19 Aspirin] Celecoxib [Celebrex] 200 mg BID PRN 07/25/19 07/25/19 Cephalexin [Keflex] 500 mg PO TID #20 capsule 07/25/19 hydroCHLOROthiazide 25 mg PO DAILY #10 tablet 07/25/19 [Hydrochlorothiazide] - Allergies Allergies/Adverse Reactions: Allergies Allergy/AdvReac Type Severity Reaction Status Date / Time Sulfa (Sulfonamide Allergy Unknown Verified 07/25/19 18:03 Antibiotics) - Social History Does the pt smoke?: No Smoking Status: Never smoker Does the pt drink ETOH?: No Does the pt have substance abuse?: No - Immunizations Immunizations are current?: Yes PD ED PE NORMAL - Vitals Vital signs reviewed: Yes - General General: Alert and oriented X 3, No acute distress - HEENT HEENT: Other (Nasal cannula in place) - Neck Neck: Supple, no meningeal sign - Cardiac Cardiac: RRR - Respiratory Respiratory: Other (Bibasilar crackles, normal work of breathing while at rest) - Abdomen Abdomen: Normal bowel sounds, Soft, Non tender, Other (Large, nontender umbilical hernia is present, he states that no one is able to reduce it.) - Male Male : Other (Beneath the pannus and intertriginous areas there is erythema) - Derm Derm: Warm and dry - Extremities Extremities: Other (Mild erythema on the anterior lower right leg. There is mild tenderness to palpation of this region, no deformity. Patient is able to flex and extend his ankle, but lifting his leg causes pain. Mil wrap was replaced.) - Neuro Neuro: Alert and oriented X 3, No motor deficit, No sensory deficit, Normal speech - Psych Psych: Normal mood, Normal affect Results - Vitals Vitals: Vital Signs - 24 hr 07/25/19 07/25/19 07/25/19 17:53 20:35 20:41 Temperature 36.6 C Heart Rate 90 Respiratory 20 32 H Rate Blood Pressure 113/75 O2 Saturation 96 94 80 L Oxygen O2 Source Nasal cannula - Labs Labs: Laboratory Tests 07/25/19 07/25/19 07/25/19 18:15 18:15 18:15 WBC 8.5 RBC 3.67 L Hgb 11.0 L Hct 35.2 L MCV 95.9 H MCH 30.0 MCHC 31.3 L RDW 13.5 Plt Count 214 MPV 8.8 Neut # (Auto) 7.2 H Lymph # (Auto) 0.7 L [place] # (Auto) 0.5 Eos # (Auto) 0.1 Baso # (Auto) 0.0 Absolute Nucleated RBC 0.00 Nucleated RBC % 0.0 Sodium 137 Potassium 3.7 Chloride 101 Carbon Dioxide 30 Anion Gap 6.0 BUN 17 Creatinine 1.0 Estimated GFR (MDRD) 74 L Glucose 116 H Glycated Hemoglobin 6.2 Estim Average Glucose 131 H Calcium 9.5 Phosphorus 2.9 Magnesium 2.1 Total Bilirubin 0.6 AST 15 ALT 13 Alkaline Phosphatase 79 Total Creatine Kinase 155 Total Protein 6.6 L Albumin 3.1 L Globulin 3.5 Albumin/Globulin Ratio 0.9 L Lipase 25 PD MEDICAL DECISION MAKING - ED course ED course: On arrival patient is nontoxic-appearing, at rest saturating in the 90s on this baseline nasal cannula. I reviewed his x-ray from earlier the day he appeared to have signs of heart failure/volume overload, his BNP was normal however he is obese which makes the BNP very unreliable. His extremity x-ray did not show signs of fracture. He did have a urinary tract infection did not start his Keflex that was prescribed, so he was given Ceftriaxone here. Overall patient has multiple medical problems and baseline poor mobility, on top of this he has COPD which apparently is end-stage, and additionally the has pulmonary embolisms. This combined with his ankle injury makes it virtually impossible for him to ambulate safely in his home. He is unable to care for himself. He lives at home and has a caregiver apartment coordinator. We attempted to mobilize patient and get him out of bed, he was unable to safely stand, and he he dropped his oxygen saturation into the 80s despite being on his home nasal cannula. Patient has no chest pain or symptoms of ACS, he is on anticoagulation, I do not feel that repeat CT scan is indicated at this time. He does appear to be an unsafe discharge home and given his hypoxia with mobilization as well as his acute ankle injury, and has a UTI. He warrants admission, and he may need a placement into a fdc facility or have further support. Departure - Departure Disposition: ED Place in Observation Clinical Impression: Hypoxia, UTI (urinary tract infection), Volume overload Discharge Date/Time: 07/25/19 22:15
[2019-07-25] MEDS ORDERED: cefTRIAXone 1 GM VIAL IVP STA (20:51)
[2019-07-25] MEDS ORDERED: FUROSEMIDE 40 MG/4 ML VIAL IVP STA (20:51)
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
[2019-07-25] MEDS ORDERED: MORPHINE 2 MG/ML CARPUJECT IVP PRN (22:01)
[2019-07-25] MEDS ORDERED: ACETAMINOPHEN 325 MG TABLET PO PRN (22:01)
[2019-07-25] MEDS ORDERED: ONDANSETRON ODT 4 MG TABLET TL PRN (22:01)
[2019-07-25] MEDS ORDERED: HYDROcod/ACETAM 5/325 MG TABLET PO PRN (22:01)
[2019-07-25 23:08] LABS: HB2 TOTAL 10.9 g/dL; HEMOGLOBIN A1C 0.48 g/dL; HEMOGLOBIN A1C % 6.2 % (4.6-6.2)
[2019-07-26] MEDS ORDERED: MIN OIL/DIMETHICON/COCONUT OIL 92 GM TUBE TOP PRN ×2 (00:21→00:23)
[2019-07-26] MEDS: ENOXAPARIN 120 MG/0.8 ML SYRINGE SUBQ SCH ×3 (01:13→21:20)
[2019-07-26] MEDS: SODIUM CHLORIDE FLUSH 0.9% 10 ML SYRINGE IVP SCH ×3 (01:14→21:20)
[2019-07-26 05:44] LABS: BILIRUBIN,URINE NEGATIVE (NEGATIVE); GLUCOSE, URINE (UA) NEGATIVE (NEGATIVE); KETONES,URINE (UA) NEGATIVE (NEGATIVE); LEUKOCYTE ESTERASE, URINE SMALL (NEGATIVE); NITRITE,URINE NEGATIVE (NEGATIVE); OCCULT BLOOD,URINE LARGE (NEGATIVE); PROTEIN,URINE 100 mg/dL (NEGATIVE); UROBILINOGEN,URINE 0.2 (NORMAL) E.U./dL (NORMAL)
[2019-07-26 05:47] LABS: CLARITY,URINE HAZY (CLEAR)
[2019-07-26 05:49] LABS: HGB - HEMOGLOBIN 10.4 g/dL (14.0-18.0); MEAN CORPUSCULAR HEMOGLOBIN 28.3 pg (27.0-31.0); MEAN CORPUSCULAR VOLUME 94.6 fL (80.0-94.0); MEAN PLATELET VOLUME 9.6 fL (7.4-11.4); RED BLOOD COUNT 3.67 10^6/uL (4.70-6.10); RED CELL DISTRIBUTION WIDTH 13.8 % (12.0-15.0); WHITE BLOOD COUNT 8.2 x10^3/uL (4.8-10.8)
[2019-07-26 05:52] LABS: BACTERIA,URINE Few /HPF (None Seen); RBC,URINE TNTC /HPF (0-5); SQUAMOUS EPITHELIAL CELL,UR RARE Squamous (<= Few)
[2019-07-26 05:58] LABS: CALCIUM 9.5 mg/dL (8.5-10.3)
[2019-07-26] MEDS: FUROSEMIDE 20 MG/2 ML VIAL IVP SCH ×2 (06:03→14:44)
[2019-07-26] MEDS: cephALEXin 250 MG CAPSULE PO SCH ×3 (06:03→21:16)
[2019-07-26] MEDS: SODIUM CHLORIDE FLUSH 0.9% 10 ML SYRINGE IVP PRN (06:03)
[2019-07-26] MEDS: PANTOPRAZOLE 40 MG TABLET PO SCH (06:40)
--- NOTE | 2019-07-26 07:37 | PROVIDER PROGRESS NOTE ---
Assessment/Plan - Problem List (1) Dyspnea Qualifiers: Dyspnea type: shortness of breath Qualified Code(s): R06.02 - Shortness of breath; R06.00 - Dyspnea, unspecified; R06.01 - Orthopnea Assessment/Plan: Etiology undetermined. However patient has COPD and is on 2 L of oxygen at baseline. We will resume patient's home medications for COPD 2D echocardiogram done was unremarkable. It showed an ejection fraction of 65 to 70% with normal left ventricular systolic function. There was no wall motion abnormality noted. In light of weakness and dyspnea a COVID-19 testing was done. Results pending (2) Ankle sprain Qualifiers: Encounter type: initial encounter Involved ligament of ankle: unspecified ligament Laterality: right Qualified Code(s): S93.401A - Sprain of unspecified ligament of right ankle, initial encounter Assessment/Plan: PT OT to assess patient and give recommendations We will order an ankle brace upon discharge (3) Diabetes type 2, controlled Qualifiers: Diabetes mellitus supervisor intermediates insulin use: without supervisor intermediates use Diabetes mellitus complication status: without complication Qualified Code(s): E11.9 - Type 2 diabetes mellitus without complications Assessment/Plan: Hemoglobin A1c is 6.2 Accu-Cheks. Sliding scale insulin (4) UTI (urinary tract infection) Qualifiers: Urinary tract infection type: acute cystitis Hematuria presence: without hematuria Qualified Code(s): N30.00 - Acute cystitis without hematuria Assessment/Plan: Patient had hematuria with few bacteria in urine. Patient was given Rocephin in the ED and then switched to Keflex. We will continue for now Urine culture pending. (5) HTN (hypertension) Qualifiers: Hypertension type: essential hypertension Qualified Code(s): I10 - Essential (primary) hypertension Assessment/Plan: Patient is on lisinopril and metoprolol. (6) Volume overload Qualifiers: Hypervolemia type: unspecified Qualified Code(s): E87.70 - Fluid overload, unspecified Assessment/Plan: As determined per chest x-ray done yesterday and +1 lower extremity edema on physical exam. Patient was started on Lasix. We will continue. 2D echo showed an ejection fraction of 65 to 70%. There is not a strong support for CHF at the moment (7) Hypothyroidism Assessment/Plan: Continue Synthroid 100 mcg daily - Current Meds Current Meds: Current Medications Generic Name Dose Route Start Last Admin Trade Name Jamesq PRN Reason Stop Dose Admin Cephalexin 500 mg 07/26/19 06:00 07/26/19 06:03 Keflex PO 500 mg TID SEAN Administration Enoxaparin Sodium 120 mg 07/25/19 23:00 07/26/19 01:13 Lovenox SUBQ 120 mg BID SEAN Administration Furosemide 20 mg 07/26/19 06:00 07/26/19 06:03 Lasix Inj 20mg Vial IVP 20 mg BIDDIURETIC SEAN Administration Pantoprazole Sodium 40 mg 07/26/19 07:00 07/26/19 06:40 Protonix PO 40 mg QDAC SEAN Administration Sodium Chloride 10 ml 07/25/19 22:01 07/26/19 06:03 Normal Saline Flush 0.9% IVP 10 ml PRN PRN Administration NEEDED PER PROVIDER ORDERS Sodium Chloride 10 ml 07/26/19 01:00 07/26/19 01:14 Normal Saline Flush 0.9% IVP 10 ml 0100,0900,1700 SEAN Administration - Lab Result Fish Bone Diagrams: 07/26/19 05:24 07/26/19 05:24 Subjective - Subjective Patient Reports: Other (Patient seen and examined this morning. He was awake alert oriented and appeared to be resting comfortably in bed at the time of exam. He is normally on 2 L of oxygen at baseline. His oxygen setting was at 2 L during our visit. He denied any decline in his respiratory status from [facility]. He denied chest pain, abdominal pain, nausea, vomiting, fever or chills. His COVID-19 testing is still pending. The rest of the history is unremarkable) Objective Vital Signs: Vital Signs - 24 hr 07/25/19 07/25/19 07/25/19 17:53 20:35 20:41 Temperature 36.6 C Heart Rate 90 Heart Rate [ Monitoring electrodes] Respiratory 20 32 H Rate Blood Pressure 113/75 Blood Pressure [Right Brachial artery] O2 Saturation 96 94 80 L 07/25/19 07/25/19 07/26/19 22:22 23:55 03:15 Temperature 36.8 C 36.8 C 36.4 C L Heart Rate Heart Rate [ 92 80 88 Monitoring electrodes] Respiratory 20 18 18 Rate Blood Pressure Blood Pressure 141/73 H 138/70 H 120/68 [Right Brachial artery] O2 Saturation 98 97 98 Oxygen O2 Source Nasal cannula Oxygen Flow Rate 2 I&O (Last 24 Hrs): Intake and Output Totals x24h 07/24/19 07/25/19 07/26/19 23:59 23:59 23:59 Output Total 300 1400 Balance -300 -1400 General: Alert, Oriented x3, No acute distress HEENT: PERRLA, EOMI Neck: No JVD Neuro: Alert, Non Focal, Oriented Times 3 Cardiovascular: Regular rate Respiratory: Chest non-tender, No respiratory distress, Other (Decreased breath sounds. No W/R/C heard) Abdomen: Normal bowel sounds, Soft, Other (obese abdomen) Extremities: Other (+1 lower extremity edema bilat right ankle wrapped in milagros bandage) Skin: No rashes - Results Results: Laboratory Results WBC 8.2 x10^3/uL (4.8-10.8) 07/26/19 05:24 RBC 3.67 10^6/uL (4.70-6.10) L 07/26/19 05:24 Hgb 10.4 g/dL (14.0-18.0) L 07/26/19 05:24 Hct 34.7 % (42.0-52.0) L 07/26/19 05:24 MCV 94.6 fL (80.0-94.0) H 07/26/19 05:24 MCH 28.3 pg (27.0-31.0) 07/26/19 05:24 MCHC 30.0 g/dL (32.0-36.0) L 07/26/19 05:24 RDW 13.8 % (12.0-15.0) 07/26/19 05:24 Plt Count 225 10^3/uL (130-450) 07/26/19 05:24 MPV 9.6 fL (7.4-11.4) 07/26/19 05:24 Neut # (Auto) 7.2 10^3/uL (1.5-6.6) H 07/25/19 18:15 Lymph # (Auto) 0.7 10^3/uL (1.5-3.5) L 07/25/19 18:15 [place] # (Auto) 0.5 10^3/uL (0.0-1.0) 07/25/19 18:15 Eos # (Auto) 0.1 10^3/uL (0.0-0.7) 07/25/19 18:15 Baso # (Auto) 0.0 10^3/uL (0.0-0.1) 07/25/19 18:15 Absolute Nucleated RBC 0.00 x10^3/uL 07/25/19 18:15 Nucleated RBC % 0.0 /100WBC 07/25/19 18:15 Sodium 139 mmol/L (135-145) 07/26/19 05:24 Potassium 3.8 mmol/L (3.5-5.0) 07/26/19 05:24 Chloride 99 mmol/L (101-111) L 07/26/19 05:24 Carbon Dioxide 32 mmol/L (21-32) 07/26/19 05:24 Anion Gap 8.0 (6-13) 07/26/19 05:24 BUN 17 mg/dL (6-20) 07/26/19 05:24 Creatinine 1.0 mg/dL (0.6-1.2) 07/26/19 05:24 Estimated GFR (MDRD) 74 (>89) L 07/26/19 05:24 Glucose 125 mg/dL (70-100) H 07/26/19 05:24 Glycated Hemoglobin 6.2 % (4.6-6.2) 07/25/19 18:15 Estim Average Glucose 131 (70-100) H 07/25/19 18:15 Calcium 9.5 mg/dL (8.5-10.3) 07/26/19 05:24 Phosphorus 2.9 mg/dL (2.5-4.6) 07/25/19 18:15 Magnesium 2.1 mg/dL (1.7-2.8) 07/25/19 18:15 Total Bilirubin 0.6 mg/dL (0.2-1.0) 07/25/19 18:15 AST 15 IU/L (10-42) 07/25/19 18:15 ALT 13 IU/L (10-60) 07/25/19 18:15 Alkaline Phosphatase 79 IU/L (42-121) 07/25/19 18:15 Total Creatine Kinase 155 IU/L (22-269) 07/25/19 18:15 Total Protein 6.6 g/dL (6.7-8.2) L 07/25/19 18:15 Albumin 3.1 g/dL (3.2-5.5) L 07/25/19 18:15 Globulin 3.5 g/dL (2.1-4.2) 07/25/19 18:15 Albumin/Globulin Ratio 0.9 (1.0-2.2) L 07/25/19 18:15 Lipase 25 U/L (22-51) 07/25/19 18:15 Urine Color YELLOW 07/26/19 03:15 Urine Clarity HAZY (CLEAR) 07/26/19 03:15 Urine pH 6.0 PH (5.0-7.5) 07/26/19 03:15 Ur Specific [place] 1.025 (1.002-1.030) 07/26/19 03:15 Urine Protein 100 mg/dL (NEGATIVE) H 07/26/19 03:15 Urine Glucose (UA) NEGATIVE mg/dL (NEGATIVE) 07/26/19 03:15 Urine Ketones NEGATIVE mg/dL (NEGATIVE) 07/26/19 03:15 Urine Occult Blood LARGE (NEGATIVE) H 07/26/19 03:15 Urine Nitrite NEGATIVE (NEGATIVE) 07/26/19 03:15 Urine Bilirubin NEGATIVE (NEGATIVE) 07/26/19 03:15 Urine Urobilinogen 0.2 (NORMAL) E.U./dL (NORMAL) 07/26/19 03:15 Ur Leukocyte Esterase SMALL (NEGATIVE) H 07/26/19 03:15 Urine RBC TNTC /HPF (0-5) H 07/26/19 03:15 Urine WBC 4-5 /HPF (0-3) 07/26/19 03:15 Ur Squamous Epith Cells RARE Squamous (<= Few) 07/26/19 03:15 Urine Bacteria Few /HPF (None Seen) 07/26/19 03:15 Ur Microscopic Review INDICATED 07/26/19 03:15 Urine Culture Comments INDICATED 07/26/19 03:15 Sepsis Event Note (H) - Evaluation Current Stage of Sepsis: Ruled out
[2019-07-26] MEDS ORDERED: LEVOTHYROXINE 100 MCG TABLET PO SCH ×2 (09:00→17:16)
[2019-07-26] MEDS: INSULIN ASPART 300 UNIT/3 ML PEN SUBQ SCH ×4 (09:29→21:17)
[2019-07-26] MEDS: ASPIRIN CHEW 81 MG TABLET PO SCH (09:38)
[2019-07-26] MEDS: lisinopriL 20 MG TABLET PO SCH (09:39)
[2019-07-26] MEDS: FAMOTIDINE 20 MG TABLET PO SCH ×2 (09:39→21:17)
[2019-07-26] MEDS: METOPROLOL SUCCINATE 50 MG TABLET PO SCH (09:41)
--- NOTE | 2019-07-26 11:57 | PHARMACY PROGRESS NOTE ---
- Best Possible Medication History Admit Date and Time: 07/25/192050 Processed by: Pharmacy Medication History completed: Yes Patient Interview: Pt unable to participate Secondary Source(s): Prescription bottles, Pharmacy records As the person ultimately responsible for medication therapy, providers are able to order a medication from an existing home medication list in [facility] via the "Reconcile Routine" prior to Confirmation of that medication by it desktop support technician. Such practice is discouraged except when the physician, in their clinical judgment, deems that a medical need exists for a medication without regard to previous use.
[2019-07-26] MEDS: LIDOCAINE PATCH 5% TOP SCH (11:59)
[2019-07-26] MEDS: SENNA 8.6 MG TABLET PO SCH (12:18)
[2019-07-26] MEDS: polyethylene glycoL 3350 17 GM PACKET PO SCH (12:19)
[2019-07-26] MEDS: DOCUSATE SODIUM 250 MG CAPSULE PO SCH (12:19)
[2019-07-26] MEDS: TIOTROPIUM BROMIDE 18 MCG INH SCH (13:48)
[2019-07-26] MEDS ORDERED: TIOTROPIUM BROMIDE 18 MCG INH SCH ×2 (14:00)
[2019-07-26] MEDS: PRAVASTATIN 10 MG TABLET PO SCH (21:17)
[2019-07-27] MEDS: SODIUM CHLORIDE FLUSH 0.9% 10 ML SYRINGE IVP SCH ×3 (00:26→21:14)
[2019-07-27 05:34] LABS: HGB - HEMOGLOBIN 10.5 g/dL (14.0-18.0); MEAN CORPUSCULAR HEMOGLOBIN 28.8 pg (27.0-31.0); MEAN CORPUSCULAR HGB CONC 30.2 g/dL (32.0-36.0); MEAN CORPUSCULAR VOLUME 95.6 fL (80.0-94.0); MEAN PLATELET VOLUME 9.6 fL (7.4-11.4); RED BLOOD COUNT 3.64 10^6/uL (4.70-6.10); WHITE BLOOD COUNT 8.4 x10^3/uL (4.8-10.8)
[2019-07-27 05:39] LABS: CALCIUM 9.4 mg/dL (8.5-10.3)
[2019-07-27] MEDS: FUROSEMIDE 20 MG/2 ML VIAL IVP SCH ×2 (06:57→13:57)
[2019-07-27] MEDS: cephALEXin 250 MG CAPSULE PO SCH ×3 (06:57→21:03)
[2019-07-27] MEDS: PANTOPRAZOLE 40 MG TABLET PO SCH (06:57)
[2019-07-27] MEDS: LEVOTHYROXINE 100 MCG TABLET PO SCH (06:58)
[2019-07-27] MEDS: TIOTROPIUM BROMIDE 18 MCG INH SCH (07:15)
[2019-07-27] MEDS: INSULIN ASPART 300 UNIT/3 ML PEN SUBQ SCH ×4 (10:40→21:04)
[2019-07-27] MEDS: LIDOCAINE PATCH 5% TOP SCH (10:47)
[2019-07-27] MEDS: ASPIRIN CHEW 81 MG TABLET PO SCH (10:47)
[2019-07-27] MEDS: lisinopriL 20 MG TABLET PO SCH (10:48)
[2019-07-27] MEDS: METOPROLOL SUCCINATE 50 MG TABLET PO SCH (10:50)
[2019-07-27] MEDS: DOCUSATE SODIUM 250 MG CAPSULE PO SCH (11:05)
[2019-07-27] MEDS: SENNA 8.6 MG TABLET PO SCH (11:05)
[2019-07-27] MEDS: polyethylene glycoL 3350 17 GM PACKET PO SCH (11:05)
[2019-07-27] MEDS: FAMOTIDINE 20 MG TABLET PO SCH ×2 (11:08→21:03)
[2019-07-27] MEDS: ENOXAPARIN 120 MG/0.8 ML SYRINGE SUBQ SCH ×2 (13:56→21:03)
--- NOTE | 2019-07-27 17:30 | PROVIDER PROGRESS NOTE ---
Assessment/Plan - Problem List (1) Dyspnea Qualifiers: Dyspnea type: shortness of breath Qualified Code(s): R06.02 - Shortness of breath; R06.00 - Dyspnea, unspecified; R06.01 - Orthopnea Assessment/Plan: Lasix was started empirically for findings of fluid overload on CXR. Echo showed a normal LVEF, therfore this could be diastolic heart failure He is also on his Home O2 at same setting which he is on for COPD. There is no wheezing or COPD exacerbation clinically however. Will assess SOB and saturations with ambulation His anemia may also be adding to SOB. Will assess Fe, B12 and Folate stores and replace if low. (2) Macrocytic anemia Assessment/Plan: His Hgb is 10 with elevated MCV. The anemia may also be adding to SOB. Will assess Fe, B12 and Folate stores and replace if low. (3) Ankle sprain Qualifiers: Encounter type: initial encounter Involved ligament of ankle: unspecified ligament Laterality: right Qualified Code(s): S93.401A - Sprain of unspecified ligament of right ankle, initial encounter Assessment/Plan: Needs ankle support and pain meds OT and PT both feel he needs a SNF, SW will choice him (4) Diabetes type 2, controlled Qualifiers: Diabetes mellitus usp insulin use: without usp use Diabetes mellitus complication status: without complication Qualified Code(s): E11.9 - Type 2 diabetes mellitus without complications Assessment/Plan: Continue cc diet and Insulin coverage (5) HTN (hypertension) Qualifiers: Hypertension type: essential hypertension Qualified Code(s): I10 - Essential (primary) hypertension Assessment/Plan: BP controlled on his home meds (6) Hypothyroidism Assessment/Plan: Continue home dose of Synthroid (7) UTI (urinary tract infection) Qualifiers: Urinary tract infection type: acute cystitis Hematuria presence: without hematuria Qualified Code(s): N30.00 - Acute cystitis without hematuria Assessment/Plan: Ruled out with no growth on culture and bacterurea was minimal. Will stop antibx - Current Meds Current Meds: Current Medications Generic Name Dose Route Start Last Admin Trade Name Freq PRN Reason Stop Dose Admin Aspirin 81 mg 07/26/19 09:00 07/27/19 10:47 [facility] [place] Aspirin PO Not Given DAILY SEAN Cephalexin 500 mg 07/26/19 06:00 07/27/19 13:57 Keflex PO 500 mg TID SEAN Administration Docusate Sodium 250 - 500 mg 07/26/19 12:00 07/27/19 11:05 Colace 250mg Capsule PO 250 mg DAILY SEAN Administration Enoxaparin Sodium 120 mg 07/25/19 23:00 07/27/19 13:56 Lovenox SUBQ 120 mg BID SEAN Administration Famotidine 20 mg 07/26/19 09:00 07/27/19 11:08 Pepcid PO Not Given BID SEAN Furosemide 20 mg 07/26/19 06:00 07/27/19 13:57 Lasix Inj 20mg Vial IVP 20 mg BIDDIURETIC SEAN Administration Insulin Aspart 1 - 9 unit 07/26/19 08:00 07/27/19 16:58 Novolog SUBQ Not Given 0800,1200,1700,2100 [facility] Protocol Levothyroxine Sodium 100 mcg 07/27/19 07:00 07/27/19 06:58 Synthroid PO 100 mcg QDAC SEAN Administration Lidocaine 1 patch 07/26/19 09:00 07/27/19 10:47 Lidoderm Patch TOP Not Given DAILY SEAN Lisinopril 40 mg 07/26/19 09:00 07/27/19 10:48 Zestril PO 40 mg DAILY SEAN Administration Metoprolol Succinate 50 mg 07/26/19 09:00 07/27/19 10:50 Toprol Xl PO 50 mg DAILY SEAN Administration Pantoprazole Sodium 40 mg 07/26/19 07:00 07/27/19 06:57 Protonix PO 40 mg QDAC SEAN Administration (Tiotropium [place] 1 each 07/26/19 14:00 07/27/19 07:15 [Spiriva] 18 Mcg) INH 1 each RTDAILY SEAN Administration Polyethylene Glycol 17 gm 07/26/19 12:00 07/27/19 11:05 Miralax PO 17 gm DAILY SEAN Administration Pravastatin Sodium 20 mg 07/26/19 21:00 07/26/19 21:17 Pravachol PO 20 mg QPM SEAN Administration Senna 8.6 - 17.2 mg 07/26/19 12:00 07/27/19 11:05 Senokot PO 8.6 mg DAILY SEAN Administration Sodium Chloride 10 ml 07/25/19 22:01 07/26/19 06:03 Normal Saline Flush 0.9% IVP 10 ml PRN PRN Administration NEEDED PER PROVIDER ORDERS Sodium Chloride 10 ml 07/26/19 01:00 07/27/19 11:09 Normal Saline Flush 0.9% IVP 10 ml 0100,0900,1700 [facility] Administration - Lab Result [place] Diagrams: 07/27/19 05:10 07/27/19 05:10 Subjective - Subjective Patient Reports: Resting Comfortably, Pain (Difficult to stand due to ankle pain ), Other ("Less SOB") Objective Vital Signs: Vital Signs - 24 hr 07/26/19 07/27/19 07/27/19 21:00 00:00 06:01 Temperature 37.2 C 36.9 C 36.8 C Heart Rate Heart Rate [ 81 88 79 Brachial] Respiratory 18 18 18 Rate Blood Pressure 128/56 L 119/64 [Right Brachial artery] Blood Pressure 126/59 L [Right Radial artery] O2 Saturation 95 98 99 07/27/19 07/27/19 07/27/19 07:20 08:00 12:00 Temperature 36.5 C 36.3 C L Heart Rate 85 Heart Rate [ 88 90 Brachial] Respiratory 16 18 20 Rate Blood Pressure 113/53 L 113/56 L [Right Brachial artery] Blood Pressure [Right Radial artery] O2 Saturation 95 96 07/27/19 15:43 Temperature Heart Rate Heart Rate [ 88 Brachial] Respiratory 20 Rate Blood Pressure [Right Brachial artery] Blood Pressure 112/64 [Right Radial artery] O2 Saturation 96 Oxygen O2 Source Nasal cannula Oxygen Flow Rate 2 I&O (Last 24 Hrs): Intake and Output Totals x24h 07/25/19 07/26/19 07/27/19 23:59 23:59 23:59 Intake Total 472 660 Output Total 300 2700 900 Balance -300 -2228 -240 General: Alert, Oriented x3 HEENT: Mucous membr. moist/pink, Other ("lazy eye" right) Neuro: Alert, Non Focal Cardiovascular: Regular rate Respiratory: No respiratory distress Abdomen: Soft Extremities: No edema - Results Results: Laboratory Results WBC 8.4 x10^3/uL (4.8-10.8) 07/27/19 05:10 RBC 3.64 10^6/uL (4.70-6.10) L 07/27/19 05:10 Hgb 10.5 g/dL (14.0-18.0) L 07/27/19 05:10 Hct 34.8 % (42.0-52.0) L 07/27/19 05:10 MCV 95.6 fL (80.0-94.0) H 07/27/19 05:10 MCH 28.8 pg (27.0-31.0) 07/27/19 05:10 MCHC 30.2 g/dL (32.0-36.0) L 07/27/19 05:10 RDW 14.0 % (12.0-15.0) 07/27/19 05:10 Plt Count 204 10^3/uL (130-450) 07/27/19 05:10 MPV 9.6 fL (7.4-11.4) 07/27/19 05:10 Neut # (Auto) 7.2 10^3/uL (1.5-6.6) H 07/25/19 18:15 Lymph # (Auto) 0.7 10^3/uL (1.5-3.5) L 07/25/19 18:15 [place] # (Auto) 0.5 10^3/uL (0.0-1.0) 07/25/19 18:15 Eos # (Auto) 0.1 10^3/uL (0.0-0.7) 07/25/19 18:15 Baso # (Auto) 0.0 10^3/uL (0.0-0.1) 07/25/19 18:15 Absolute Nucleated RBC 0.00 x10^3/uL 07/25/19 18:15 Nucleated RBC % 0.0 /100WBC 07/25/19 18:15 Sodium 138 mmol/L (135-145) 07/27/19 05:10 Potassium 3.7 mmol/L (3.5-5.0) 07/27/19 05:10 Chloride 100 mmol/L (101-111) L 07/27/19 05:10 Carbon Dioxide 31 mmol/L (21-32) 07/27/19 05:10 Anion Gap 7.0 (6-13) 07/27/19 05:10 BUN 20 mg/dL (6-20) 07/27/19 05:10 Creatinine 1.0 mg/dL (0.6-1.2) 07/27/19 05:10 Estimated GFR (MDRD) 74 (>89) L 07/27/19 05:10 Glucose 114 mg/dL (70-100) H 07/27/19 05:10 Glycated Hemoglobin 6.2 % (4.6-6.2) 07/25/19 18:15 Estim Average Glucose 131 (70-100) H 07/25/19 18:15 Calcium 9.4 mg/dL (8.5-10.3) 07/27/19 05:10 Phosphorus 2.9 mg/dL (2.5-4.6) 07/25/19 18:15 Magnesium 2.1 mg/dL (1.7-2.8) 07/25/19 18:15 Total Bilirubin 0.6 mg/dL (0.2-1.0) 07/25/19 18:15 AST 15 IU/L (10-42) 07/25/19 18:15 ALT 13 IU/L (10-60) 07/25/19 18:15 Alkaline Phosphatase 79 IU/L (42-121) 07/25/19 18:15 Total Creatine Kinase 155 IU/L (22-269) 07/25/19 18:15 Total Protein 6.6 g/dL (6.7-8.2) L 07/25/19 18:15 Albumin 3.1 g/dL (3.2-5.5) L 07/25/19 18:15 Globulin 3.5 g/dL (2.1-4.2) 07/25/19 18:15 Albumin/Globulin Ratio 0.9 (1.0-2.2) L 07/25/19 18:15 Lipase 25 U/L (22-51) 07/25/19 18:15 Urine Color YELLOW 07/26/19 03:15 Urine Clarity HAZY (CLEAR) 07/26/19 03:15 Urine pH 6.0 PH (5.0-7.5) 07/26/19 03:15 Ur Specific [place] 1.025 (1.002-1.030) 07/26/19 03:15 Urine Protein 100 mg/dL (NEGATIVE) H 07/26/19 03:15 Urine Glucose (UA) NEGATIVE mg/dL (NEGATIVE) 07/26/19 03:15 Urine Ketones NEGATIVE mg/dL (NEGATIVE) 07/26/19 03:15 Urine Occult Blood LARGE (NEGATIVE) H 07/26/19 03:15 Urine Nitrite NEGATIVE (NEGATIVE) 07/26/19 03:15 Urine Bilirubin NEGATIVE (NEGATIVE) 07/26/19 03:15 Urine Urobilinogen 0.2 (NORMAL) E.U./dL (NORMAL) 07/26/19 03:15 Ur Leukocyte Esterase SMALL (NEGATIVE) H 07/26/19 03:15 Urine RBC TNTC /HPF (0-5) H 07/26/19 03:15 Urine WBC 4-5 /HPF (0-3) 07/26/19 03:15 Ur Squamous Epith Cells RARE Squamous (<= Few) 07/26/19 03:15 Urine Bacteria Few /HPF (None Seen) 07/26/19 03:15 Ur Microscopic Review INDICATED 07/26/19 03:15 Urine Culture Comments INDICATED 07/26/19 03:15 Coronavirus (PCR) NEGATIVE 07/25/19 19:47 Sepsis Event Note (H) - Evaluation Current Stage of Sepsis: Ruled out
[2019-07-27] MEDS: PRAVASTATIN 10 MG TABLET PO SCH (21:03)
[2019-07-28] MEDS: SODIUM CHLORIDE FLUSH 0.9% 10 ML SYRINGE IVP SCH ×2 (00:29→09:14)
[2019-07-28 05:38] LABS: HGB - HEMOGLOBIN 10.5 g/dL (14.0-18.0); MEAN CORPUSCULAR HEMOGLOBIN 29.8 pg (27.0-31.0); MEAN CORPUSCULAR HGB CONC 31.1 g/dL (32.0-36.0); MEAN PLATELET VOLUME 9.7 fL (7.4-11.4); RED BLOOD COUNT 3.52 10^6/uL (4.70-6.10); RED CELL DISTRIBUTION WIDTH 13.6 % (12.0-15.0); WHITE BLOOD COUNT 7.5 x10^3/uL (4.8-10.8)
[2019-07-28 05:46] LABS: CALCIUM 9.4 mg/dL (8.5-10.3)
[2019-07-28] MEDS: FUROSEMIDE 20 MG/2 ML VIAL IVP SCH (06:06)
[2019-07-28] MEDS: LEVOTHYROXINE 100 MCG TABLET PO SCH (06:06)
[2019-07-28] MEDS: PANTOPRAZOLE 40 MG TABLET PO SCH (06:06)
[2019-07-28] MEDS: TIOTROPIUM BROMIDE 18 MCG INH SCH (06:06)
[2019-07-28] MEDS: cephALEXin 250 MG CAPSULE PO SCH (06:06)
[2019-07-28 06:15] LABS: FOLATE 10.74 ng/mL (5.90 - >24.8)
[2019-07-28] MEDS: SODIUM CHLORIDE FLUSH 0.9% 10 ML SYRINGE IVP PRN (06:16)
--- NOTE | 2019-07-28 07:57 | Discharge Plan ---
"Discharge Plan for SNF / KAREL - Discharge Plan And Transition Orders Problem Reviewed?: Yes Disposition: 03 [facility] DC/Xfer Condition: Stable Allergies and Adverse Reactions: Allergies Allergy/AdvReac Type Severity Reaction Status Date / Time Sulfa (Sulfonamide Allergy Unknown Verified 07/25/19 18:03 Antibiotics) Health Concerns: Admitted with shortness of breath and pain/ weakness of ankle due to recent ankle injury. We found a urinary tract infection, mild volume overload and anemia, which were adding to the COPD and causing dyspnea. Plan of Treatment: New Iron replacement started. Several days of diuretic were given. Oxygen desat study with exertion was done and no increase O2 needed. E coli grew from urine culture, being treated with Keflex (plus a probiotic) and Pyridium. The painful ankle is prescribed [place] and a Lidocaine patch topically. Care Goals: Improvement in symptoms and stabilization are the goals. PT and OT at a SNF are deemed to be needed. Assessment: The patient is agreeable with the plan. - SNF / LONG TERM Transition Orders Admit to (Facility): [facility] Discharge Diagnosis: (1) Dyspnea, multi-factorial (2) E coli UTI (3) Iron deficiency anemia (4) Ankle sprain (5) Diabetes type 2, controlled (6) HTN (hypertension) (7) Hypothyroidism (8) COPD on home oxygen, without exacerbation (9) Umbilical hernia Medicare Certification Statement: I certify that Post Hospital intermediate care is medically necessary on a continuing basis for any of the conditions for which she/he is receiving care during hospitalization. Notify PCP of admission and forward orders to primary provider for signature. Weight on admission and: Weekly Call PCP immediately if weight increases by: 5 kg Other Notification Orders: Call PCP immediately if patient develops dyspnea, chest pain/tightness or edema. House Bowel Program: Yes Additional Bowel Program Orders: If no BM after 2 days, nurse may give M.O.M. 30ml PO PRN and/or ducolax Supp 1 ND and/or [place] 250mg P.O., and/or senna 1-2 tabs PO. On day 3 nurse may give repeat above order until residents constipation is resolved. Annual Influenza Vaccine (between Dec 04 and July 03): Yes Two-step PPD per [facility] [id number] or approved exception documents: Yes Treatments & Other Orders: Daily OT and PT Oxygen Orders: Oxygen 2L per nasal cannula continuously Lab Tests or X-ray Orders: Fingerstick glu prn Orthopedic Orders: Ankle brace Medication Orders: PLEASE REFER TO THE DISCHARGE MEDICATION LIST. Insulin Orders?: No - Medications New Prescriptions: HYDROcod/ACETAM 5/325 [[place] 5/325] 1 tab PO Q6HR PRN #20 tablet PRN Reason: Pain 5 to 7 cephALEXin [Keflex] 250 mg PO TID #42 capsule Ferrous Gluconate 240 mg PO DAILY #30 tablet Lidocaine Patch 5% [Lidoderm Patch] 1 patch TOP DAILY #30 patch Phenazopyridine HCl [Pyridium] 100 mg PO BID #14 tablet Saccharomyces Boulardii [Florastor] 250 mg PO BID #28 capsule - Diet Type: Diabetic Texture: Regular Liquids: Thin May have monthly special meal: Yes - Therapies | Activity Therapy: Evaluation | Treat if indicated: PT, OT Rehabilitation Potential: Maximize functional status, Return to independent living Activity: Activity as Tolerated Weight Bearing: Full Weight Assistance Devices: Other (SHANKAR bandage or ankle brace prn) Follow Up: See PCP after Dch from [facility]."
[2019-07-28] MEDS ORDERED: FERROUS GLUCONATE 324 MG TABLET PO SCH (08:00)
[2019-07-28] MEDS ORDERED: metFORMIN 500 MG TABLET PO SCH (09:00)
[2019-07-28] MEDS ORDERED: CETIRIZINE 10 MG TABLET PO PRN (09:00)
[2019-07-28] MEDS ORDERED: hydroCHLOROthiazide 25 MG TABLET PO SCH (09:00)
[2019-07-28 09:06] VITALS: BP 115/61
[2019-07-28] MEDS: lisinopriL 20 MG TABLET PO SCH (09:12)
[2019-07-28] MEDS: FAMOTIDINE 20 MG TABLET PO SCH (09:12)
[2019-07-28] MEDS: DOCUSATE SODIUM 250 MG CAPSULE PO SCH (09:12)
[2019-07-28] MEDS: METOPROLOL SUCCINATE 50 MG TABLET PO SCH (09:12)
[2019-07-28] MEDS: ENOXAPARIN 120 MG/0.8 ML SYRINGE SUBQ SCH (09:13)
[2019-07-28] MEDS: ASPIRIN CHEW 81 MG TABLET PO SCH (09:13)
[2019-07-28] MEDS: INSULIN ASPART 300 UNIT/3 ML PEN SUBQ SCH ×2 (09:13→12:20)
[2019-07-28] MEDS: LIDOCAINE PATCH 5% TOP SCH (09:13)
[2019-07-28] MEDS: SENNA 8.6 MG TABLET PO SCH (09:13)
[2019-07-28] MEDS: polyethylene glycoL 3350 17 GM PACKET PO SCH (09:13)
--- NOTE | 2019-07-28 12:13 | DISCHARGE SUMMARY ---
Discharge Summary Admit Date: 07/25/19 Discharge Date: 07/28/19 Discharging Provider: Dr Joaquina Lugo Primary Care Provider: Dr Lavonne Barreto Code Status: Attempt Resuscitation Condition at Discharge: Stable Discharge Disposition: 03 SNF DC/Xfer - HPI History of Present Illness: From the admission H&P of Dr. Pollo Castro: The patient is a pleasant, if not easily distractible, 73-year-old male with a past medical history inclusive of COPD, chronically on 2 L of oxygen at baseline, Hx of pulmonary embolus, [place] cell carcinoma, type 2 diabetes not insulin-dependent, morbid obesity who presented to the emergency room earlier today for evaluation of a right ankle sprain. He was sitting in his recliner chair, when he went to get up, and was unable to do so properly, twisted his ankle. He was evaluated in the emergency department, and x-ray of the right ankle was done showing no evidence of fracture so the patient was discharged home. He was also diagnosed with UTI, so he was given a prescription for Keflex, which he has not yet started. He was then seen by his caregiver at his home, and she found him to be struggling quite a bit to ambulate in his home, as a combination of pain in his right ankle, as well as becoming much more dyspneic on exertion than his typical baseline. She advised that he return to the hospital for possible admission. In the emergency department he had previously been checked for the ankle as well as had chest x-ray and labs with the BNP being relatively unremarkable, and chest x-ray suggestive of fluid. Because the patient was on 2 L at his baseline, he had been discharged home, but on a repeat visit when attempting to sit up at the edge of the bed, he desaturated into the low 80s on 3 L of oxygen. He was unable to demonstrate the ability to get out of bed due to his leg pain, and could not bear weight on his right ankle, so he was not felt to be a safe discharge. Patient denies any chest pain, fever, chills, nausea vomiting. He does state that his right lower extremity is always swollen but seems like recently has become more swollen than typical. He states that he has a history of palpit ations, he is not sure if it is atrial fibrillation, but otherwise denies any other known cardiac history. - HOSPITAL COURSE Hospital Course: (1) Dyspnea, multi-factorial Lasix was give for 2 days empirically for findings of fluid overload on CXR. An Echo was done that showed a normal LVEF, therefore this could have had diastolic heart failure. He was kept on his Enoxaparin for the Hx of pulmonary embolism. He was kept on supplemental oxygen for his underlying COPD. Nebs were continued. There is no wheezing or a COPD exacerbation clinically, however. His anemia is also adding to the SOB. We assessed his Fe, B12 and Folate stores (see below). He was tested for needing a different supplemental oxygen setting with an exercise oximetry test, and did not need a change; remains on O2 per nasal cannula at 2L continuously. (2) E coli UTI He was put on empiric iv Ceftriaxone. The urine culture from the first ER visit turned positive for E. coli. He was discharged to take Keflex orally for a prolonged course of 14 more days in a male, for good prostate penetration. (3) Iron deficiency anemia His Hgb was 10 with an elevated MCV of 96. His B12 and Folate levels were normal, but Iron stores were low. He was started and discharged to take supplemental oral iron. (4) Ankle sprain The discomfort from this was significant. He felt better with an SHANKAR wrap. He worked with PT and OT and was deemed to need a SNF for further rehab and was discharged to [facility] in [place] in stable condition. He had [place] and Lidocaine patch for pain, prescribed at discharge. (5) Diabetes type 2, controlled His A1c was 6.2, indicating very good control on his home Metformin. He was also on a carb-controlled diet a sliding scale Insulin while here. (6) HTN (hypertension) BP was well controlled on his home meds (7) Hypothyroidism His home Synthroid med was continued. (8) COPD on home oxygen, without exacerbation Nebs were continued, inhalers restarted at discharge. Home O2 order continued. (9) Umbilical hernia This is stable, but gives him extra difficulty when getting OOB. - ALLERGIES Allergies/Adverse Reactions: Allergies Allergy/AdvReac Type Severity Reaction Status Date / Time Sulfa (Sulfonamide Allergy Unknown Verified 07/25/19 18:03 Antibiotics) - MEDICATIONS Home Medications: Ambulatory Orders Medication Instructions Recorded Confirmed Levothyroxine [Synthroid] 100 mcg PO DAILY 06/06/18 07/26/19 Metoprolol Succinate 50 mg PO DAILY 06/06/18 07/26/19 Omeprazole 20 mg PO QDAC 06/06/18 07/26/19 Pravastatin Sodium 20 mg PO QPM 06/06/18 07/26/19 lisinopriL [Lisinopril] 40 mg PO DAILY 06/06/18 07/26/19 hydroCHLOROthiazide 25 mg PO DAILY #10 tablet 07/25/19 07/26/19 [Hydrochlorothiazide] Levocetirizine Dihydrochloride 5 mg PO DAILY PRN 07/26/19 07/26/19 Metformin HCl [Metformin HCl ER] 500 mg PO DAILY 07/26/19 07/26/19 Tiotropium [place] [Spiriva] 18 mcg INH DAILY 07/26/19 07/26/19 Aspirin Chewable [[place] 81 mg PO DAILY tablet 07/28/19 Aspirin] Enoxaparin [Lovenox] 120 mg SUBQ BID syringe 07/28/19 Ferrous Gluconate 240 mg PO DAILY #30 tablet 07/28/19 HYDROcod/ACETAM 5/325 [[place] 5/325] 1 tab PO Q6HR PRN #20 tablet 07/28/19 Lidocaine Patch 5% [Lidoderm Patch] 1 patch TOP DAILY #30 patch 07/28/19 Metformin HCl [Metformin HCl ER] 500 mg PO DAILY 07/28/19 Phenazopyridine HCl [Pyridium] 100 mg PO BID #14 tablet 07/28/19 Saccharomyces Boulardii [Florastor] 250 mg PO BID #28 capsule 07/28/19 cephALEXin [Keflex] 250 mg PO TID #42 capsule 07/28/19 - PHYSICAL EXAM AT DISCHARGE General Appearance: positive: No acute distress, Alert Eyes Bilateral: positive: Normal inspection, EOMI ENT: positive: No signs of dehydration Neck: positive: Nml inspection, No JVD Respiratory: positive: Other (Poor air movement, but clear, no wheezing or rales) Cardiovascular: positive: No murmur Abdomen: positive: Other (Obese with a pannus and a large, protuberant umbilical hernia) Skin: positive: Color nml Extremities: positive: Pedal edema, Other (R ankle 1+ edema, SHANKAR wrapped, tender ankle) Neurologic/Psychiatric: positive: Oriented x3, Other (Non-focal) - LABS Result Diagrams: 07/28/19 05:06 07/28/19 05:06 - DIAGNOSTIC IMAGING Diagnostic Imaging Results: Final report reviewed - FOLLOW UP Follow Up: See PCP after Dch from SNF - TIME SPENT Time Spent in Discharge (Minutes): 60
== END 2019-07-28 12:54 | DRG 292 ==
LOC: ED 17:54 → MS2 20:51
PROVIDERS: ADMIT Family Medicine Sports Medicine; ATTEND Internal Medicine
DX: I11.0 Hypertensive heart disease with heart failure (principal); I50.9 Heart failure, unspecified; Z68.42 Body mass index [BMI] 45.0-49.9, adult; R09.02 Hypoxemia; N30.00 Acute cystitis without hematuria; I50.30 Unspecified diastolic (congestive) heart failure; S93.401A Sprain of unspecified ligament of right ankle, initial encounter; W07.XXXA Fall from chair, initial encounter; E78.00 Pure hypercholesterolemia, unspecified; Y92.009 Unspecified place in unspecified non-institutional (private) residence as the place of occurrence of the external cause; J44.9 Chronic obstructive pulmonary disease, unspecified; E11.9 Type 2 diabetes mellitus without complications; E03.9 Hypothyroidism, unspecified; E66.01 Morbid (severe) obesity due to excess calories; D50.8 Other iron deficiency anemias; B96.20 Unspecified Escherichia coli [E. coli] as the cause of diseases classified elsewhere; K42.9 Umbilical hernia without obstruction or gangrene; M19.90 Unspecified osteoarthritis, unspecified site; Z74.09 Other reduced mobility; Z74.2 Need for assistance at home and no other household member able to render care; Z20.828 Contact with and (suspected) exposure to other viral communicable diseases; Z99.81 Dependence on supplemental oxygen; Z79.01 Long term (current) use of anticoagulants; Z79.84 Long term (current) use of oral hypoglycemic drugs; Z79.82 Long term (current) use of aspirin; Z86.711 Personal history of pulmonary embolism; Z85.821 Personal history of Merkel cell carcinoma; Z87.891 Personal history of nicotine dependence
CPT/HCPCS: 36415; 51702; 71045; 73590; 73610; 80048; 80053; 81001; 82550; 82607; 82746; 83036; 83540; 83690; 83735; 83880; 84100; 84466; 85025; 85027; 87077; 87086; 87181; 93306; 94640; 94761; 97110; 97162; 97166; 97530; 97535; 99284; 99285; A6250; A9270; J1650; U0004; 81003; 81599

== ENCOUNTER 2019-08-29 07:07 | Outpatient (CLI) | payer MEDICARE, OTHER | END 2019-08-29 07:08 | disposition critical access hospital (66) | LOC: EMS 07:07 | PROVIDERS: ATTEND Surgery | DX: R50.9 Fever, unspecified (principal); R09.89 Other specified symptoms and signs involving the circulatory and respiratory systems ==

== ENCOUNTER 2019-08-29 07:18 | Emergency (ER) | payer MEDICARE, OTHER ==
--- NOTE | 2019-08-29 07:58 | ED Physician Documentation ---
PD HPI DYSPNEA - Stated complaint Stated Complaint: SOA - Chief complaint Chief Complaint: Resp - History obtained from History obtained from: Patient, EMS, Caregiver - History of Present Illness Timing - onset: How many days ago (3) Timing - onset during: Rest Timing - duration: Days (3) Timing - details: Gradual onset, Still present Inciting event(s): URI Improved by: O2 Worsened by: Exertion Associated symptoms: Fever Similar symptoms before: Diagnosis (COPD pneumonia) Recently seen: Other - Additional information Additional information: 73-year-old male who is currently a resident [facility] has a history of oxygen dependent COPD, pulmonary embolism, type 2 diabetes, [place]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 The patient himself is slow to respond to questions with a delay in execution of motor commands and he indicates that he feels no different than usual. He has markedly diminished ambulatory status as of 1 month ago when he sprained his ankle in his home. He was seen here in the emergency department discharged to home where he was unable to care for himself came back Review of Systems Unable to obtain: Confused Eyes: denies: Decreased vision Ears: denies: Ear pain Nose: denies: Rhinorrhea / runny nose, Congestion Throat: denies: Sore throat Cardiac: reports: Calf pain. denies: Chest pain / pressure, Palpitations, Pedal edema Respiratory: reports: Dyspnea. denies: Cough, Wheezing GI: reports: Constipation. denies: Abdominal Pain, Nausea, Vomiting, Diarrhea : denies: Dysuria, Frequency Musculoskeletal: reports: Extremity pain Neurologic: reports: Generalized weakness. denies: Focal weakness, Numbness PD PAST MEDICAL HISTORY - Past Medical History Past Medical History: Yes Cardiovascular: Hypertension, High cholesterol Respiratory: COPD, Shortness of breath Endocrine/Autoimmune: Type 2 diabetes, HyPOthyroidism Musculoskeletal: Osteoarthritis - Past Surgical History Past Surgical History: Yes General: Other HEENT: Cataracts, Detached retina repair Derm: Skin grafts - Present Medications Home Medications: Ambulatory Orders Medication Instructions Recorded Confirmed Levothyroxine [Synthroid] 100 mcg PO DAILY 06/06/18 07/26/19 Metoprolol Succinate 50 mg PO DAILY 06/06/18 07/26/19 Omeprazole 20 mg PO QDAC 06/06/18 07/26/19 Pravastatin Sodium 20 mg PO QPM 06/06/18 07/26/19 lisinopriL [Lisinopril] 40 mg PO DAILY 06/06/18 07/26/19 hydroCHLOROthiazide 25 mg PO DAILY #10 tablet 07/25/19 07/26/19 [Hydrochlorothiazide] Levocetirizine Dihydrochloride 5 mg PO DAILY PRN 07/26/19 07/26/19 Metformin HCl [Metformin HCl ER] 500 mg PO DAILY 07/26/19 07/26/19 Tiotropium [place] [Spiriva] 18 mcg INH DAILY 07/26/19 07/26/19 Aspirin Chewable [[place] 81 mg PO DAILY tablet 07/28/19 Aspirin] Enoxaparin [Lovenox] 120 mg SUBQ BID syringe 07/28/19 Ferrous Gluconate 240 mg PO DAILY #30 tablet 07/28/19 HYDROcod/ACETAM 5/325 [[place] 5/325] 1 tab PO Q6HR PRN #20 tablet 07/28/19 Lidocaine Patch 5% [Lidoderm Patch] 1 patch TOP DAILY #30 patch 07/28/19 Metformin HCl [Metformin HCl ER] 500 mg PO DAILY 07/28/19 Phenazopyridine HCl [Pyridium] 100 mg PO BID #14 tablet 07/28/19 Saccharomyces Boulardii [Florastor] 250 mg PO BID #28 capsule 07/28/19 cephALEXin [Keflex] 250 mg PO TID #42 capsule 07/28/19 Azithromycin [Zithromax] 250 mg PO DAILY #6 tablet 08/29/19 Cefdinir 300 mg PO BID #20 capsule 08/29/19 - Allergies Allergies/Adverse Reactions: Allergies Allergy/AdvReac Type Severity Reaction Status Date / Time Sulfa (Sulfonamide Allergy Unknown Verified 08/29/19 07:39 Antibiotics) - Social History Does the pt smoke?: No Smoking Status: Never smoker Does the pt drink ETOH?: No Does the pt have substance abuse?: No - Immunizations Immunizations are current?: Yes - POLST Patient has POLST: No POLST Status: Full Code PD ED PE NORMAL - Vitals Vital signs reviewed: Yes - General General: Well developed/nourished, Other (73-year old male tachypneic at rest has some delay in execution of motor commands and is in denial of any specific symptoms.) - HEENT HEENT: Atraumatic, PERRL, EOMI - Neck Neck: Supple, no meningeal sign, No bony TTP - Cardiac Cardiac: RRR, No murmur - Respiratory Respiratory: Other (Tachypneic at rest with markedly diminished breath sounds bilaterally) - Abdomen Abdomen: Soft, Non tender, Other (There is impressive infraumbilical ventral hernia that is firm and nontender about the size of a softball.) - Back Back: No CVA TTP, No spinal TTP - Derm Derm: Normal color, Warm and dry - Extremities Extremities: No deformity, No edema, No calf tenderness / cord, Other (There is a tattoo in the left forearm where the patient had radiation therapy for [place] cell carcinoma. The calves are tender bilaterally but without obvious edema.) - Neuro Neuro: No motor deficit, No sensory deficit, Other Eye Opening: Spontaneous Motor: Obeys Commands Verbal: Confused GCS Score: 14 - Psych Psych: Normal mood, Normal affect Results - Vitals Vitals: Vital Signs - 24 hr 08/29/19 08/29/19 08/29/19 07:26 07:32 10:05 Temperature 36.4 C L 36.4 C L Heart Rate 95 95 109 H Respiratory 32 H 33 H 31 H Rate Blood Pressure 126/78 126/78 130/73 O2 Saturation 98 98 92 08/29/19 12:22 Temperature Heart Rate 112 H Respiratory 24 Rate Blood Pressure 121/84 H O2 Saturation 94 Oxygen O2 Source Room air Oxygen Flow Rate 2 - Labs Labs: Laboratory Tests 08/29/19 08/29/19 08/29/19 07:40 07:40 07:40 WBC 10.5 RBC 3.95 L Hgb 12.2 L Hct 38.5 L MCV 97.5 H MCH 30.9 MCHC 31.7 L RDW 17.2 H Plt Count 173 MPV 10.3 Neut # (Auto) 8.8 H Lymph # (Auto) 0.6 L [place] # (Auto) 0.9 Eos # (Auto) 0.1 Baso # (Auto) 0.0 Absolute Nucleated RBC 0.00 Nucleated RBC % 0.0 Sodium 136 Potassium 3.8 Chloride 94 L Carbon Dioxide 33 H Anion Gap 9.0 BUN 16 Creatinine 0.7 Estimated GFR (MDRD) 111 Glucose 127 H Lactic Acid 1.0 Calcium 9.8 Total Bilirubin 1.2 H AST 22 ALT 16 Alkaline Phosphatase 81 B-Natriuretic Peptide Total Protein 6.5 L Albumin 2.7 L Globulin 3.8 Albumin/Globulin Ratio 0.7 L Lipase 28 Urine Color Urine Clarity Urine pH Ur Specific [place] Urine Protein Urine Glucose (UA) Urine Ketones Urine Occult Blood Urine Nitrite Urine Bilirubin Urine Urobilinogen Ur Leukocyte Esterase Urine RBC Urine WBC Ur Squamous Epith Cells Urine Bacteria Ur Microscopic Review Urine Culture Comments 08/29/19 08/29/19 07:40 13:10 WBC RBC Hgb Hct MCV MCH MCHC RDW Plt Count MPV Neut # (Auto) Lymph # (Auto) [place] # (Auto) Eos # (Auto) Baso # (Auto) Absolute Nucleated RBC Nucleated RBC % Sodium Potassium Chloride Carbon Dioxide Anion Gap BUN Creatinine Estimated GFR (MDRD) Glucose Lactic Acid Calcium Total Bilirubin AST ALT Alkaline Phosphatase B-Natriuretic Peptide 35 Total Protein Albumin Globulin Albumin/Globulin Ratio Lipase Urine Color YELLOW Urine Clarity SL. CLOUDY Urine pH 5.5 Ur Specific [place] >=1.030 H Urine Protein TRACE Urine Glucose (UA) NEGATIVE Urine Ketones 15 H Urine Occult Blood MODERATE H Urine Nitrite NEGATIVE Urine Bilirubin SMALL H Urine Urobilinogen 1 (NORMAL) Ur Leukocyte Esterase SMALL H Urine RBC 0-5 Urine WBC 6-10 H Ur Squamous Epith Cells FEW Squamous Urine Bacteria Moderate H Ur Microscopic Review INDICATED Urine Culture Comments INDICATED - Rads (name of study) CXR Radiology: Prelim report reviewed (Impression: 1. Pulmonary vascular congestion, interstitial edema, and cardiomegaly suggest mild changes of CHF. Underlying infiltrate not excluded. 2. Possible small right effusion.), EMP read indepedently (developing infiltrate in the right hilar area comparision with film of 07-25-2019), See rad report Procedures - IVC sono (time) 0828 Bedside IVC sono: IVC measures (cm) (0.92), IVC collapsed c insp (cm) (compl ete), Dehydration (est 2 liter deficit.) PD MEDICAL DECISION MAKING - ED course Complexity details: reviewed old records, reviewed results, re-evaluated patient, considered differential, d/w patient ED course: 73-year-old male with history of COPD has had a negative COVID test 3 days ago and he is a resident of [facility]. He has come to the emergency department with increasing dyspnea and a reported fever. He is afebrile here and dependent on oxygen. He appears tachypneic at rest and appears confused. A chest x-ray done demonstrates the cardiomegaly present previously and there is concern for failure on the exam. On my read I am concerned about a developing infiltrate in the right hilar area and after interrogation of the inferior vena cava with the bedside ultrasound I am certain the patient is not in failure. He requires fluid resuscitation. Despite having a history of pulmonary embolism he has no evidence of right heart failure. He is given fluid, rocephin and zithromax. Dr. Jean-Paul Olivera is consulted in the case and will be happy to care for this patient for community acquired pneumonia at [facility]. Departure - Departure Disposition: 01 Home, Self Care Clinical Impression: Dehydration Pneumonia Qualifiers: Pneumonia type: due to unspecified organism Laterality: right Lung location: middle lobe of lung Qualified Code(s): J18.9 - Pneumonia, unspecified organism Condition: Stable Instructions: ED Dehydration, ED Pneumonia Adult Follow-Up: Parish Olivera DO [Credentialed Staff Provider] - Prescriptions: Azithromycin [Zithromax] 250 mg PO DAILY #6 tablet Cefdinir 300 mg PO BID #20 capsule
--- NOTE | 2019-08-29 08:06 | XRAY Report ---
Reason: soa Procedure Date: 08/29/2019 Accession Number: [id number] / [id number] Procedure: XR - Chest 1 View X-Ray CPT Code: 90699 Final Report FULL RESULT: EXAM: CHEST RADIOGRAPHY EXAM DATE: 08/29/2019 07:53 AM. CLINICAL HISTORY: Short of breath starting this morning. COMPARISON: CHEST 1 VIEW 07/25/2019 6:34 AM CHEST 2 VIEW PA/LAT 10/03/2015 10:30 AM CHEST 01/24/2007 1:06 PM CXR PA TECHNIQUE: 1 view. FINDINGS: Lungs/Pleura: Mild vascular congestion and diffuse interstitial prominence. Small right effusion may be present. Evaluation of the left lung base is limited by probable prominent mediastinal fat, similar to prior exams. No definite focal consolidation. No visible pneumothorax. Mediastinum: Stable moderate cardiomegaly. Atherosclerotic calcifications of the aortic arch. Other: Degenerative changes of the right greater than left shoulder. IMPRESSION: 1. Pulmonary vascular congestion, interstitial edema, and cardiomegaly suggest mild changes of CHF. Underlying infiltrate not excluded. 2. Possible small right effusion. RADIA
[2019-08-29] MEDS ORDERED: SODIUM CHLORIDE 0.9% 1,000 ML IV STA (08:37)
[2019-08-29 08:40] LABS: BASOPHILS % (AUTO) 0.3 %; EOSINOPHILS # (AUTO) 0.1 10^3/uL (0.0-0.7); EOSINOPHILS % (AUTO) 1.3 %; HGB - HEMOGLOBIN 12.2 g/dL (14.0-18.0); LYMPHOCYTES # (AUTO) 0.6 10^3/uL (1.5-3.5); LYMPHOCYTES % (AUTO) 5.3 %; MEAN CORPUSCULAR HEMOGLOBIN 30.9 pg (27.0-31.0); MEAN CORPUSCULAR HGB CONC 31.7 g/dL (32.0-36.0); MEAN CORPUSCULAR VOLUME 97.5 fL (80.0-94.0); MEAN PLATELET VOLUME 10.3 fL (7.4-11.4); MONOCYTES # (AUTO) 0.9 10^3/uL (0.0-1.0); MONOCYTES % (AUTO) 8.9 %; NEUTROPHILS # (AUTO) 8.8 10^3/uL (1.5-6.6); NEUTROPHILS % (AUTO) 83.7 %; PLT - PLATELET COUNT 173 10^3/uL (130-450); RED BLOOD COUNT 3.95 10^6/uL (4.70-6.10); RED CELL DISTRIBUTION WIDTH 17.2 % (12.0-15.0); WHITE BLOOD COUNT 10.5 x10^3/uL (4.8-10.8)
[2019-08-29 08:49] LABS: ALBUMIN 2.7 g/dL (3.2-5.5); ALBUMIN/GLOBULIN RATIO 0.7 (1.0-2.2); BILIRUBIN,TOTAL 1.2 mg/dL (0.2-1.0); CALCIUM 9.8 mg/dL (8.5-10.3); CREATININE 0.7 mg/dL (0.6-1.2); TOTAL PROTEIN 6.5 g/dL (6.7-8.2)
[2019-08-29] MEDS ORDERED: AZITHROMYCIN INJ 500 MG in SODIUM CHLORIDE 0.9% 250 ML IV STA (09:17)
[2019-08-29] MEDS ORDERED: cefTRIAXone 1 GM in SODIUM CHLORIDE 0.9% MINIBAG 100 ML IV STA (09:17)
[2019-08-29 13:23] LABS: BILIRUBIN,URINE SMALL (NEGATIVE); GLUCOSE, URINE (UA) NEGATIVE (NEGATIVE); KETONES,URINE (UA) 15 mg/dL (NEGATIVE); LEUKOCYTE ESTERASE, URINE SMALL (NEGATIVE); NITRITE,URINE NEGATIVE (NEGATIVE); OCCULT BLOOD,URINE MODERATE (NEGATIVE); PH,URINE 5.5 PH (5.0-7.5); PROTEIN,URINE TRACE mg/dL (NEGATIVE); UROBILINOGEN,URINE 1 (NORMAL) E.U./dL (NORMAL)
[2019-08-29 13:34] LABS: CLARITY,URINE SL. CLOUDY (CLEAR)
[2019-08-29 13:36] LABS: BACTERIA,URINE Moderate /HPF (None Seen); RBC,URINE 0-5 /HPF (0-5); SQUAMOUS EPITHELIAL CELL,UR FEW Squamous (<= Few)
[2019-08-29 14:47] VITALS: BP 124/81
== END 2019-08-29 14:57 | disposition home or self-care (01) ==
LOC: ED 07:18
DX: J18.9 Pneumonia, unspecified organism (principal); E86.0 Dehydration; E11.9 Type 2 diabetes mellitus without complications; I10 Essential (primary) hypertension; Z99.81 Dependence on supplemental oxygen; Z79.84 Long term (current) use of oral hypoglycemic drugs; Z20.828 Contact with and (suspected) exposure to other viral communicable diseases
CPT/HCPCS: 36415; 71045; 80053; 81001; 81003; 81599; 83605; 83690; 83880; 85025; 86769; 87040; 87086; 96361; 96365; 96366; 96368; 99284

== ENCOUNTER 2019-08-29 14:59 | Outpatient (CLI) | payer MEDICARE, OTHER | END 2019-08-29 15:00 | disposition home or self-care (01) | LOC: EMS 14:59 | PROVIDERS: ATTEND Surgery | DX: J18.9 Pneumonia, unspecified organism (principal); E66.01 Morbid (severe) obesity due to excess calories; R41.0 Disorientation, unspecified; Z74.01 Bed confinement status; Z99.81 Dependence on supplemental oxygen; R50.9 Fever, unspecified; R09.89 Other specified symptoms and signs involving the circulatory and respiratory systems | CPT/HCPCS: A0425; A0428; A0429 ==

== ENCOUNTER 2019-08-30 06:00 | Outpatient (CLI) | payer MEDICARE, OTHER ==
[2019-08-30 07:21] LABS: ALBUMIN 2.5 g/dL (3.2-5.5); ALBUMIN/GLOBULIN RATIO 0.8 (1.0-2.2); CALCIUM 9.6 mg/dL (8.5-10.3); CREATININE 0.6 mg/dL (0.6-1.2); TOTAL PROTEIN 5.8 g/dL (6.7-8.2)
[2019-08-30 07:24] LABS: BASOPHILS % (AUTO) 0.4 %; EOSINOPHILS # (AUTO) 0.3 10^3/uL (0.0-0.7); EOSINOPHILS % (AUTO) 3.1 %; HGB - HEMOGLOBIN 10.9 g/dL (14.0-18.0); LYMPHOCYTES # (AUTO) 0.7 10^3/uL (1.5-3.5); LYMPHOCYTES % (AUTO) 7.9 %; MEAN CORPUSCULAR HEMOGLOBIN 30.6 pg (27.0-31.0); MEAN CORPUSCULAR HGB CONC 30.9 g/dL (32.0-36.0); MEAN CORPUSCULAR VOLUME 99.2 fL (80.0-94.0); MEAN PLATELET VOLUME 10.7 fL (7.4-11.4); MONOCYTES # (AUTO) 0.9 10^3/uL (0.0-1.0); MONOCYTES % (AUTO) 9.8 %; NEUTROPHILS # (AUTO) 7.1 10^3/uL (1.5-6.6); NEUTROPHILS % (AUTO) 78.4 %; PLT - PLATELET COUNT 171 10^3/uL (130-450); RED BLOOD COUNT 3.56 10^6/uL (4.70-6.10); RED CELL DISTRIBUTION WIDTH 17.3 % (12.0-15.0); WHITE BLOOD COUNT 9.1 x10^3/uL (4.8-10.8)
[2019-08-30 07:48] LABS: HB2 TOTAL 11.4 g/dL; HEMOGLOBIN A1C 0.36 g/dL
== END 2019-08-30 23:59 | disposition home or self-care (01) ==
LOC: LAB.R 06:00
DX: N17.9 Acute kidney failure, unspecified (principal); E11.8 Type 2 diabetes mellitus with unspecified complications; D50.9 Iron deficiency anemia, unspecified
CPT/HCPCS: 80053; 83036; 85025

== ENCOUNTER 2019-09-06 05:50 | Outpatient (CLI) | payer MEDICARE, OTHER | END 2019-09-06 23:59 | disposition home or self-care (01) | LOC: LAB.R 05:50 | PROVIDERS: ATTEND Family Medicine | DX: D64.9 Anemia, unspecified (principal); J96.11 Chronic respiratory failure with hypoxia; I10 Essential (primary) hypertension | CPT/HCPCS: 83921 ==

== ENCOUNTER 2019-09-08 12:33 | Outpatient (CLI) | payer MEDICARE, OTHER ==
--- NOTE | 2019-09-08 13:30 | XRAY Report ---
Reason: PNEUMONIA Procedure Date: 09/08/2019 Accession Number: [id number] / [id number] Procedure: XR - Chest 2 View X-Ray CPT Code: 36796 Final Report FULL RESULT: PROCEDURE: Chest 2 View X-Ray INDICATIONS: PNEUMONIA TECHNIQUE: 2 view(s) of the chest. COMPARISON: Chest x-ray 08/29/2019 FINDINGS: Surgical changes and devices: None. Lungs and pleura: There is blunting of the left costophrenic angle. Increased pulmonary vascularity is present. Mediastinum: Mediastinal contours are normal. Heart size is enlarged. Bones and chest wall: No suspicious bony abnormalities. Soft tissues appear unremarkable. IMPRESSION: Left costophrenic angle blunting consistent with mild left effusion. Areas of underlying airspace disease such as developing pneumonia and/or atelectasis. Mild increased vascularity is present consistent with edema. Reviewed by: Joselyn Segura MD on 09/08/2019 1:29 PM PDT Approved by: Joselyn Segura MD on 09/08/2019 1:29 PM PDT Station ID: [id number]
== END 2019-09-08 12:34 | disposition home or self-care (01) ==
LOC: DI 12:33
DX: R91.8 Other nonspecific abnormal finding of lung field (principal)
CPT/HCPCS: 71046

== ENCOUNTER 2019-09-22 15:39 | Outpatient (CLI) | payer MEDICARE, OTHER ==
--- NOTE | 2019-09-22 16:30 | XRAY Report ---
PROCEDURE: Chest 2 View X-Ray INDICATIONS: PNEUMONIA TECHNIQUE: 2 view(s) of the chest. COMPARISON: Chest x-ray examination dated 09.08.19 FINDINGS: Surgical changes and devices: None. Lungs and pleura: No pneumothorax. No change in left costophrenic angle blunting and left basilar at electasis versus pneumonia. Mediastinum: Mediastinal contours are normal. Heart size is enlarged. Bones and chest wall: No suspicious bony abnormalities. Soft tissues appear unremarkable. IMPRESSION: No change in left lower lobe pneumonia. Follow-up PA and lateral chest x-rays or chest C T is recommended to ensure resolution, and to exclude underlying neoplasm. Reviewed by: Olga Ray MD on 09/22/2019 4:29 PM PDT Approved by: Olga Ray MD on 09/22/2019 4:29 PM PDT Station ID: [id number]
== END 2019-09-22 15:40 | disposition home or self-care (01) ==
LOC: DI 15:39
PROVIDERS: ATTEND Nurse Practitioner
DX: J18.9 Pneumonia, unspecified organism (principal)
CPT/HCPCS: 71046

== ENCOUNTER 2019-10-12 11:46 | Outpatient (CLI) | payer MEDICARE, OTHER, MEDICAID ==
--- NOTE | 2019-10-12 17:22 | XRAY Report ---
PROCEDURE: Chest 2 View X-Ray INDICATIONS: PNEUMONIA TECHNIQUE: 2 view(s) of the chest. COMPARISON: 09/22/2019, 09/08/2019, 08/29/2019, 07/25/2019 and 10/03/2015. FINDINGS: Surgical changes and devices: None. Lungs and pleura: No pleural effusions or pneumothorax. Lungs are clear. Pleural base mass in the p osterior margin of the left lung base is stable compared to 10/03/2015 likely represents a benign proc ess. Mediastinum: Mediastinal contours are normal. Atherosclerotic calcifications in the aortic arch. Hea rt size is normal. Bones and chest wall: No suspicious bony abnormalities. Thoracic spine degenerative disc changes. So ft tissues appear unremarkable. IMPRESSION: No acute cardiopulmonary disease process with resolution of left lower lobe pneumonia.. Reviewed by: Maine Zuniga MD, PhD on 10/12/2019 5:21 PM PDT Approved by: Maine Zuniga MD, PhD on 10/12/2019 5:21 PM PDT Station ID: [id number]
== END 2019-10-12 11:47 | disposition home or self-care (01) ==
LOC: DI 11:46
PROVIDERS: ATTEND Family Medicine
DX: J18.9 Pneumonia, unspecified organism (principal)
CPT/HCPCS: 71046